=== PATIENT | female | born 1930 | race Asian ===

== ENCOUNTER 2016-08-25 09:33 | Inpatient (IN) | END 2016-08-26 17:05 | disposition home or self-care (01) | DRG 641 | DX: E87.1 Hypo-osmolality and hyponatremia (principal); E11.9 Type 2 diabetes mellitus without complications; D64.9 Anemia, unspecified; I10 Essential (primary) hypertension; E78.5 Hyperlipidemia, unspecified; M81.0 Age-related osteoporosis without current pathological fracture; R10.9 Unspecified abdominal pain ==

== ENCOUNTER 2019-01-09 09:08 | Inpatient (IN) | payer MEDICARE, BC ==
[~2019-01-09] VITALS: Ht 149.9 cm; Wt 52.3 kg
[~2019-01-09 09:08] MED LIST: AMLO-218 PO; ASPI-817 PO; CALC-207 PO; CALC500T12 PO; CARV3.1260 PO; CARV6.2579 PO; CHOL200056 PO; CHOL200073 PO; DEME300T8 PO; FAMO20TA18 PO; FER325 PO; FERR-55 PO; GABA100C14 PO; GLIM1TAB2 PO; HYDR-3672 PO; IBAN150T16 PO; ISOS30TA67 PO; LOPE-123 PO; LOSA50TA14 PO; LUBI8CAP4 PO; MECL-77 PO; METF500T24 PO; ONDA4TAB13 PO; SIMV10TA PO; SODI1TAB2 PO; TOLV15TA PO
[2019-01-09 09:12] VITALS: Ht 149.9 cm; Wt 52.3 kg
[2019-01-09] MEDS ORDERED: SOD CHLORIDE 0.9% 100 ML ONE (14:30)
[2019-01-09] MEDS ORDERED: ALBUTEROL/IPRATROPIUM (NEB) 3 ML AMP HHN STA (14:39)
--- NOTE | 2019-01-09 15:27 | HP ---
Date/Time of Note Date/Time of Note DATE: 01/09/19 TIME: 15:27 Assessment/Plan VTE Prophylaxis SCD applied (from Nsg): Yes Pharmacological prophylaxis: other Lines/Catheters IV Catheter Type (from Nrsg): Saline Lock Assessment/Plan Hospital Course Assessment and plan: 88-year-old female past medical history of diabetes, high cholesterol, hypertension, osteoporosis, anemia, recent hyponatremia, who comes in with shortness of breath and chest pain. #Shortness of breath: Again symptoms have been worsening over the last 1 to 2 days. Patient oxygen levels are stable. Symptoms somewhat relieved by DuoNeb's given today. Patient denies any prior history of asthma or COPD -Follow-up TSH, A1c, lipid panels, do DuoNebs every 4 hours around the clock for now -Given the CTA findings will obtain pulmonary consult for further work-up -We will also get respiratory therapy, speech, PT and OT eval's # cp: Could be musculoskeletal source, also need to rule out acute coronary syndrome -Put patient on high-dose aspirin, oxygen, nitroglycerin, morphine as needed -Trend the troponins every 6 hours x3 total, get 2D echocardiogram, will obtain cardiology consult as well. # DM: Follow-up A1c, placed on sliding scale insulin #Hypertension: Blood pressure stable, continue current medications #Anemia: Hemoglobin stable, monitor for now #History of osteoporosis: No present issues, will obtain PT, OT consult as mentioned above Result Diagram: 01/09/19 1120 01/09/19 1120 Results 24hrs Laboratory Tests Test 01/09/19 11:20 01/09/19 11:22 White Blood Count 8.7 Red Blood Count 4.61 Hemoglobin 13.0 Hematocrit 39.2 Mean Corpuscular Volume 85.0 Mean Corpuscular Hemoglobin 28.2 L Mean Corpuscular Hemoglobin Concent 33.2 Red Cell Distribution Width 13.8 Platelet Count 232 # Mean Platelet Volume 10.7 H Immature Granulocytes % 0.300 Neutrophils % 71.8 Lymphocytes % 17.5 Monocytes % 8.2 Eosinophils % 1.4 Basophils % 0.8 Nucleated Red Blood Cells % 0.0 Immature Granulocytes # 0.030 Neutrophils # 6.2 Lymphocytes # 1.5 Monocytes # 0.7 Eosinophils # 0.1 Basophils # 0.1 Nucleated Red Blood Cells # 0.0 Prothrombin Time 12.2 Prothrombin Time Ratio 1.0 INR International Normalized Ratio 0.89 Activated Partial Thromboplast Time 27.8 Sodium Level 136 Potassium Level 4.9 Chloride Level 99 Carbon Dioxide Level 26 Anion Gap 11 Blood Urea Nitrogen 24 H Creatinine 1.02 H Est Glomerular Filtrat Rate mL/min Glucose Level 161 Calcium Level 9.8 Total Bilirubin 0.3 Direct Bilirubin 0.00 Indirect Bilirubin 0.3 Aspartate Amino Transf (AST/SGOT) 39 Alanine Aminotransferase (ALT/SGPT) 28 Alkaline Phosphatase 114 Troponin I < 0.012 B-Type Natriuretic Peptide 448 Total Protein 7.4 Albumin 4.0 Globulin 3.40 H Albumin/Globulin Ratio 1.17 POC Venous Lactate 2.0 HPI/ROS Admit Date/Time Admit Date/Time Hx of Present Illness 88-year-old female past medical history of diabetes, high cholesterol, hypertension, osteoporosis, anemia, recent hyponatremia, who comes in with shortness of breath and chest pain. Patient states that symptoms have been going off and on for the last few days but gotten worse in the last 1 to 2 days. She denies any upper or lower GI bleeding, she has some mild nausea symptoms but no vomiting. She is also had decreased ambulation status due to weakness. Patient recently went to a new primary care doctor a few days ago and was told she had low sodium and was given a prescription for tolvaptan, which she was not able to fill because of the cost of the medicine being too high and the insurance not covering it. She also at that time was prescribed meclizine for some dizziness symptoms which mildly relieved those symptoms. 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 Patient denies any history of any prior stroke or heart attack. When she came in today she was given a breathing treatment which helped relieve her shortness of breath symptoms, but she was not found to be hypoxic. CTA chest was performed which showed: IMPRESSION: 1. Slightly limited evaluation of the pulmonary arteries due to respiratory motion artifact. No large or central pulmonary emboli. 2. No aortic aneurysm or dissection. 3. Cardiomegaly and coronary calcification. 4. Moderate central lobular emphysema. No confluent pneumonia, pleural fluid or pneumothorax. 5. Moderate left shoulder joint fluid and synovial thickening. 6. Focal step-off in the manubrium which is likely artifactual due to motion rather than true fracture PMH/Family/Social Past Medical History Medications Current Medications Ondansetron HCl (Zofran Inj) 4 mg ER BRIDGE PRN IV NAUSEA/VOMITING; Start 01/09/19 at 15:30; Stop 01/10/19 at 15:29 Acetaminophen (Tylenol Tab) 650 mg ER BRIDGE PRN PO .MILD PAIN 1-3 OR TEMP; Start 01/09/19 at 15:30; Stop 01/10/19 at 15:29 Coded Allergies: No Known Allergy (Verified , 01/09/19) Past Surgical History Past Surgical Hx: no surgical history Family History Significant Family History: no pertinent family hx Social History Alcohol Use: none Smoking Status: Never smoker Drug Use: none Exam/Review of Systems Vital Signs Vitals Vital Signs Date Temp Pulse Resp B/P (MAP) Pulse Ox O2 O2 Flow FiO2 Time Delivery Rate 01/09/19 97.8 71 18 173/78 100 Nasal 2.0 15:17 (109) Cannula Exam Exam Constitutional: lying in bed, getting DuoNeb treatment, alert Head: normocephalic, atraumatic Eyes: EOMI, PERRL Respiratory: Slightly distant breath sounds bilaterally Cardiovascular: S1, S2 heard Gastrointestinal: soft, non-tender Extremities: no bilateral lower extremity edema Neuro: No focal deficits BENTLEY LUONG Jan 09, 2019 15:27
[2019-01-09] MEDS ORDERED: ACETAMINOPHEN 325 MG TAB PO PRN ×2 (15:30→16:30)
[2019-01-09] MEDS ORDERED: ONDANSETRON 4 MG INJ IV PRN ×2 (15:30→16:30)
[2019-01-09] MEDS ORDERED: LORAZEPAM 2 MG INJ IV PRN (16:30)
[2019-01-09] MEDS ORDERED: hydrALAzine 20 MG INJ IV PRN ×2 (16:30→17:30)
[2019-01-09] MEDS ORDERED: NACL 0.9% 3 ML SYG IV SCH (16:30)
[2019-01-09] MEDS ORDERED: MAGNESIUM HYDROXIDE 30ML CUP PO PRN (16:30)
[2019-01-09] MEDS ORDERED: NITROGLYCERIN (SL) 0.4 MG TAB SL PRN (16:30)
[2019-01-09] MEDS ORDERED: morphine 2 MG INJ IV PRN (16:30)
[2019-01-09] MEDS ORDERED: DOCUSATE SODIUM 100 MG CAP PO PRN (16:30)
[2019-01-09] MEDS ORDERED: GLUCOSE GEL 15 GRAM TUBE PO PRN ×2 (17:00)
[2019-01-09] MEDS ORDERED: DEXTROSE 50% 50 ML SYRINGE IV PRN ×2 (17:00)
[2019-01-09] MEDS: INSULIN ASPART [NOVOLOG] 3 ML PEN SC SCH ×2 (17:00→21:00)
[2019-01-09] MEDS ORDERED: GLUCAGON 1 MG INJ IM PRN (17:00)
[2019-01-09] MEDS ORDERED: GLUCOSE GEL 15 GRAM TUBE BUCCAL PRN (17:00)
[2019-01-09] MEDS ORDERED: FUROSEMIDE 20 MG INJ IV ONE (17:30)
[2019-01-09] MEDS: ALBUTEROL/IPRATROPIUM (NEB) 3 ML AMP HHN SCH ×2 (17:44→22:06)
[2019-01-09] MEDS ORDERED: LEVOFLOXACIN 500MG/D5W (PMX) 100 ML IVPB SCH (19:30)
[2019-01-09] MEDS ORDERED: NON-FORMULARY/PATIENT OWN MED (Simvastatin* (Zocor*) 10 MG) PO SCH (21:00)
[2019-01-09] MEDS: ATORVASTATIN 10 MG TAB PO SCH (21:51)
[2019-01-09] MEDS: GABAPENTIN 100 MG CAP PO SCH (21:52)
[2019-01-09 21:54] VITALS: BP 165/72; PULSE 70; RESP 18
[2019-01-09 23:46] VITALS: BP 86/72; PULSE 77
[2019-01-10] MEDS ORDERED: SOD CHLORIDE 0.9% 500 ML IV ONE
[2019-01-10 00:30] VITALS: BP 104/46; PULSE 65; RESP 18
[2019-01-10] MEDS: INSULIN ASPART [NOVOLOG] 3 ML PEN SC SCH ×6 (01:00→20:44)
[2019-01-10] MEDS: ALBUTEROL/IPRATROPIUM (NEB) 3 ML AMP HHN SCH ×3 (01:49→09:48)
[2019-01-10] MEDS: ACCU-CHEK XX SCH (02:00)
[2019-01-10 03:56] VITALS: BP 95/43; PULSE 66; RESP 18
--- NOTE | 2019-01-10 03:59 | CONS ---
DATE OF ADMISSION: 01/09/2019 DATE OF CONSULTATION: 01/09/2019 REASON FOR CONSULTATION: Shortness of breath, congestive heart failure, rule out infections as well as chest pain, assess for acute coronary syndrome. REQUESTING PHYSICIAN: Dr. Luong from the hospitalist service. HISTORY OF PRESENT ILLNESS: Ms. Miguel is a very pleasant 88-year-old female well known to myself as a primary office patient who carries a history of hypertension, dyslipidemia, diabetes mellitus, neuropathy and presents with complaints of shortness of breath ongoing for 1 to 2 days and chest pain, left- sided at rest, poorly described. Upon arrival, temperature 98.7, blood pressure 138/83, pulse 69, respiratory rate 24, satting 98%. The patient's labs revealed a white blood count 8.7, hemoglobin 13.0, platelet count of 232. Sodium 136, potassium 4.9, creatinine 1.0, BUN of 24. Troponin negative. BNP of 448. INR 0.89. The patient underwent a chest CTA revealing a slightly limited evaluation of the pulmonary arteries due to respiratory motion artifact. No large central pulmonary emboli, no aortic aneurysm or dissection. Moderate central lobular emphysema, moderate left shoulder joint fluid and synovial thickening. Patient's additionally underwent a chest x-ray revealing calcification of the aorta, stable nodule of the right lower lung, diffuse mild interstitial prominence both lungs, could reflect edema. The patient's EKG revealed sinus rhythm, rate of 65, normal axis, normal intervals, anterior T-wave inversion with occasional PVCs and aberrantly conducted PACs. Thus far in the emergency department, the patient has been treated with albuterol, IV fluid hydration and now awaits admit to the floor. PAST MEDICAL HISTORY: As above in HPI. MEDICATIONS CURRENTLY IN HOSPITAL: 1. Levofloxacin. 2. Pepcid. 3. Ferrous sulfate. 4. Imdur 30 mg daily. 5. Carvedilol 3.125 p.o. b.i.d. 6. Neurontin 100 mg at bedtime. 7. Hydralazine 50 mg p.o. b.i.d. 8. Insulin sliding scale. 9. Zofran p.r.n. 10. Tylenol p.r.n. 11. [place]vang p.r.n. 12. Morphine p.r.n. 13. Ativan p.r.n. ALLERGIES: NO KNOWN DRUG ALLERGIES. SOCIAL HISTORY: No current tobacco, ETOH or illicit drug use. FAMILY HISTORY: No history of sudden cardiac or early CAD. REVIEW OF SYSTEMS: As above in HPI. CONSTITUTIONAL: No fevers, chills. PULMONARY: Positive shortness breath. CARDIOVASCULAR: Intermittent chest pain. GASTROINTESTINAL: No vomiting. GENITOURINARY: No hematuria. MUSCULOSKELETAL: Degenerative joint disease. PSYCHIATRIC: The patient has depression. NEUROLOGIC: No documented history of CVA. ENDOCRINE: Diabetes mellitus. PHYSICAL EXAMINATION: VITAL SIGNS: Temperature of 97.8, blood pressure 173/78, pulse 70, respiratory rate 18, satting 100% on 2 liters. GENERAL: The patient is alert, awake, complaining of shortness of breath. NECK: JVP approximately 9 cm of water. CHEST: Fair air movement throughout with mild decreased breath sounds at bases bilaterally. HEART: Regular rate and rhythm. Normal S1, S2, I/ systolic murmur, nondisplaced PMI. ABDOMEN: Positive bowel sounds, soft. EXTREMITIES: No significant pitting edema, 1+ pulses bilateral posterior tibial. LABORATORY DATA: As above in HPI. No further labs for my review at this time. IMAGING STUDIES: As above in HPI. No further imaging studies for my review at this time. ECG: As above in HPI. No further electrocardiograms for my review at this time. IMPRESSION: 1. Chest pain, assess for acute coronary syndrome with some possible reproducibility on left sided palpation of the chest, although there is additional component. 2. Shortness of breath, congestive heart failure. 3. Hypertension, currently uncontrolled, but has not received baseline medications. 4. Dyslipidemia. 5. Diabetes mellitus. 6. Neuropathy. 7. Increased BNP. RECOMMENDATIONS: 1. At this time, would admit patient to telemetry monitoring to follow rhythm and rate control closely. 2. Complete the patient's rule out for myocardial infarction to ensure the patient's constellation of not result in acute coronary syndrome, acute myocardial infarction. 3. Check a 2D echo for reassessment of patient's ejection fraction, wall motion, rule out any major abnormalities. 4. Follow the patient's blood pressure after receiving baseline carvedilol, hydralazine and Imdur and will give additional IV push p.r.n. antihypertensives as necessary. 5. Follow the patient's blood sugars closely with adjustment of insulin therapy. 6. Continue the patient's antibiotics and follow up all culture data including a sputum culture that should be checked. 7. We will consider possible stress test in this patient if she does rule out for myocardial infarction to be scheduled first thing in the morning. 8. We will consider gentle Lasix diuresis, but will need to follow the patient's creatinine closely. Thank you for allowing me to take part in the care of this patient. I will continue to follow very closely with you with further recommendations will be made as the patient progresses through inpatient hospital clinical course. Dictated By: LAZARO CREWS/PATRICIA Conf#: [id number] DID#: [id number] CC: BENTLEY LUONG;*Fredy* MTDD
[2019-01-10 07:35] VITALS: BP 119/56; PULSE 64; RESP 16
[2019-01-10] MEDS ORDERED: LEVOFLOXACIN 750MG/D5W (PMX) 150 ML IVPB SCH (09:00)
[2019-01-10] MEDS ORDERED: NON-FORMULARY/PATIENT OWN MED (Cholecalciferol (Vitamin D3) (Vitamin D-3) 2,000 UNIT) PO SCH (09:00)
[2019-01-10] MEDS: FAMOTIDINE 20 MG TAB PO SCH (09:05)
[2019-01-10] MEDS: FUROSEMIDE 20 MG INJ IV SCH (09:06)
[2019-01-10] MEDS: ISOSORBIDE MONONITRATE(SR)30 MG TAB PO SCH (09:06)
[2019-01-10] MEDS: CHOLECALCIFEROL 2,000 UNIT CAP PO SCH (09:06)
[2019-01-10] MEDS: FERROUS SULFATE (EC) 325 MG TAB PO SCH (09:09)
[2019-01-10] MEDS ORDERED: ALBUTEROL/IPRATROPIUM (NEB) 3 ML AMP HHN PRN (11:00)
[2019-01-10 11:05] VITALS: BP 111/59; RESP 16
--- NOTE | 2019-01-10 11:07 | PN ---
Date/Time of Note Date/Time of Note DATE: 01/10/19 TIME: 11:02 Assessment/Plan VTE Prophylaxis Risk score (from Ns)>0 risk: 4 SCD applied (from Ns): Yes Pharmacological prophylaxis: other Lines/Catheters IV Catheter Type (from Nrs): Saline Lock Assessment/Plan Hospital Course S: Patient states she has less shortness of breath now. Seen by cardiology team earlier. Waiting for cardiac stress test later today. O: VS- see below PE: Constitutional: lying in bed, more alert Head: normocephalic, atraumatic Eyes: EOMI, PERRL Respiratory: Slightly distant breath sounds bilaterally Cardiovascular: S1, S2 heard Gastrointestinal: soft, non-tender Extremities: no bilateral lower extremity edema Neuro: No focal deficits Assessment and plan: 88-year-old female past medical history of diabetes, high cholesterol, hypertension, osteoporosis, anemia, recent hyponatremia, who comes in with shortness of breath and chest pain. #Shortness of breath: Improved today. Before admission again symptoms had been worsening over the last 1 to 2 days. Patient oxygen levels are stable. Symptoms somewhat relieved by DuoNeb's given. Patient denies any prior history of asthma or COPD -Change to as needed DuoNebs every 4 hours -Follow-up further recommendations from pulmonary consult for further work-up Continue speech, PT and OT eval's # cp: Could be musculoskeletal source, patient has ruled out for acute coronary syndrome now. -For now continue aspirin, oxygen, nitroglycerin, morphine as needed -Planning for cardiac stress test today, follow-up results of this and further cardiac recommendations # DM: A1c = 6.8 -Monitor, continue sliding scale insulin #Hypertension: Blood pressure stable -Monitor, continue current medications #Anemia: Hemoglobin stable, monitor for now #History of osteoporosis: No present issues, follow-up recommendations from PT, OT consult as mentioned above Result Diagram: 01/10/19 0603 01/10/19 0603 Results 24hrs Laboratory Tests Test 01/09/19 11:20 01/09/19 11:22 01/09/19 17:18 01/09/19 17:46 White Blood Count 8.7 Red Blood Count 4.61 Hemoglobin 13.0 Hematocrit 39.2 Mean Corpuscular 85.0 Volume Mean Corpuscular 28.2 L Hemoglobin Mean Corpuscular 33.2 Hemoglobin Concent Red Cell 13.8 Distribution Width Platelet Count 232 # Mean Platelet Volume 10.7 H Immature 0.300 Granulocytes % Neutrophils % 71.8 Lymphocytes % 17.5 Monocytes % 8.2 Eosinophils % 1.4 Basophils % 0.8 Nucleated Red Blood 0.0 Cells % Immature 0.030 Granulocytes # Neutrophils # 6.2 Lymphocytes # 1.5 Monocytes # 0.7 Eosinophils # 0.1 Basophils # 0.1 Nucleated Red Blood 0.0 Cells # Prothrombin Time 12.2 Prothrombin Time 1.0 Ratio INR International 0.89 Normalized Ratio Activated 27.8 Partial Thromboplast Time Sodium Level 136 Potassium Level 4.9 Chloride Level 99 Carbon Dioxide Level 26 Anion Gap 11 Blood Urea Nitrogen 24 H Creatinine 1.02 H Est Glomerular Filtrat Rate mL/min Glucose Level 161 Calcium Level 9.8 Total Bilirubin 0.3 Direct Bilirubin 0.00 Indirect Bilirubin 0.3 Aspartate Amino 39 Transf (AST/SGOT) Alanine 28 Aminotransferase (AL T/SGPT) Alkaline Phosphatase 114 Troponin I < 0.012 < 0.012 B-Type Natriuretic 448 Peptide Total Protein 7.4 Albumin 4.0 Globulin 3.40 H Albumin/Globulin 1.17 Ratio POC Venous Lactate 2.0 Bedside Glucose 106 Lactic Acid Level 1.4 Creatine Kinase 249 H Creatine Kinase 1.5 Index Creatinine Kinase MB 3.68 H (Mass) Test 01/09/19 22:00 01/09/19 22:06 01/10/19 01:29 01/10/19 04:40 Bedside Glucose 113 112 103 Creatine Kinase 256 H Creatine Kinase 1.6 Index Creatinine Kinase MB 4.22 H (Mass) Troponin I 0.015 Test 01/10/19 06:03 01/10/19 06:28 01/10/19 08:38 White Blood Count 10.0 Red Blood Count 4.58 Hemoglobin 12.8 Hematocrit 38.9 Mean Corpuscular 84.9 Volume Mean Corpuscular 27.9 L Hemoglobin Mean Corpuscular 32.9 Hemoglobin Concent Red Cell 14.0 Distribution Width Platelet Count 226 Mean Platelet Volume 11.1 H Immature 0.400 Granulocytes % Neutrophils % 62.4 Lymphocytes % 26.1 Monocytes % 8.4 Eosinophils % 2.0 Basophils % 0.7 Nucleated Red Blood 0.0 Cells % Immature 0.040 H Granulocytes # Neutrophils # 6.2 Lymphocytes # 2.6 Monocytes # 0.8 Eosinophils # 0.2 Basophils # 0.1 Nucleated Red Blood 0.0 Cells # Sodium Level 136 Potassium Level 4.4 Chloride Level 101 Carbon Dioxide Level 24 Anion Gap 11 Blood Urea Nitrogen 32 H Creatinine 1.31 H Est Glomerular Filtrat Rate mL/min Glucose Level 108 # Hemoglobin A1c 6.8 H Calcium Level 9.0 Phosphorus Level 5.2 H Magnesium Level 1.8 Triglycerides Level 59 Cholesterol Level 154 LDL Cholesterol, 88 Calculated HDL Cholesterol 54 Cholesterol/HDL 2.8 Ratio Thyroid Stimulating 4.080 Hormone (TSH) Bedside Glucose 110 Exam/Review of Systems Exam Vitals Vital Signs Date Temp Pulse Resp B/P (MAP) Pulse Ox O2 O2 Flow FiO2 Time Delivery Rate 01/10/19 98 4.0 09:30 01/10/19 78 18 Aerosol 09:30 Aerosol Mask 01/10/19 97.8 119/56 07:35 (77) Intake and Output 01/09/19 01/09/19 01/10/19 1515:00 23:00 07:00 IntakeIntake Total 100 ml BalanceBalance 100 ml Results Results 24hrs Laboratory Tests Test 01/09/19 11:20 01/09/19 11:22 01/09/19 17:18 01/09/19 17:46 White Blood Count 8.7 Red Blood Count 4.61 Hemoglobin 13.0 Hematocrit 39.2 Mean Corpuscular 85.0 Volume Mean Corpuscular 28.2 L Hemoglobin Mean Corpuscular 33.2 Hemoglobin Concent Red Cell 13.8 Distribution Width Platelet Count 232 # Mean Platelet Volume 10.7 H Immature 0.300 Granulocytes % Neutrophils % 71.8 Lymphocytes % 17.5 Monocytes % 8.2 Eosinophils % 1.4 Basophils % 0.8 Nucleated Red Blood 0.0 Cells % Immature 0.030 Granulocytes # Neutrophils # 6.2 Lymphocytes # 1.5 Monocytes # 0.7 Eosinophils # 0.1 Basophils # 0.1 Nucleated Red Blood 0.0 Cells # Prothrombin Time 12.2 Prothrombin Time 1.0 Ratio INR International 0.89 Normalized Ratio Activated 27.8 Partial Thromboplast Time Sodium Level 136 Potassium Level 4.9 Chloride Level 99 Carbon Dioxide Level 26 Anion Gap 11 Blood Urea Nitrogen 24 H Creatinine 1.02 H Est Glomerular Filtrat Rate mL/min Glucose Level 161 Calcium Level 9.8 Total Bilirubin 0.3 Direct Bilirubin 0.00 Indirect Bilirubin 0.3 Aspartate Amino 39 Transf (AST/SGOT) Alanine 28 Aminotransferase (AL T/SGPT) Alkaline Phosphatase 114 Troponin I < 0.012 < 0.012 B-Type Natriuretic 448 Peptide Total Protein 7.4 Albumin 4.0 Globulin 3.40 H Albumin/Globulin 1.17 Ratio POC Venous Lactate 2.0 Bedside Glucose 106 Lactic Acid Level 1.4 Creatine Kinase 249 H Creatine Kinase 1.5 Index Creatinine Kinase MB 3.68 H (Mass) Test 01/09/19 22:00 01/09/19 22:06 01/10/19 01:29 01/10/19 04:40 Bedside Glucose 113 112 103 Creatine Kinase 256 H Creatine Kinase 1.6 Index Creatinine Kinase MB 4.22 H (Mass) Troponin I 0.015 Test 01/10/19 06:03 01/10/19 06:28 01/10/19 08:38 White Blood Count 10.0 Red Blood Count 4.58 Hemoglobin 12.8 Hematocrit 38.9 Mean Corpuscular 84.9 Volume Mean Corpuscular 27.9 L Hemoglobin Mean Corpuscular 32.9 Hemoglobin Concent Red Cell 14.0 Distribution Width Platelet Count 226 Mean Platelet Volume 11.1 H Immature 0.400 Granulocytes % Neutrophils % 62.4 Lymphocytes % 26.1 Monocytes % 8.4 Eosinophils % 2.0 Basophils % 0.7 Nucleated Red Blood 0.0 Cells % Immature 0.040 H Granulocytes # Neutrophils # 6.2 Lymphocytes # 2.6 Monocytes # 0.8 Eosinophils # 0.2 Basophils # 0.1 Nucleated Red Blood 0.0 Cells # Sodium Level 136 Potassium Level 4.4 Chloride Level 101 Carbon Dioxide Level 24 Anion Gap 11 Blood Urea Nitrogen 32 H Creatinine 1.31 H Est Glomerular Filtrat Rate mL/min Glucose Level 108 # Hemoglobin A1c 6.8 H Calcium Level 9.0 Phosphorus Level 5.2 H Magnesium Level 1.8 Triglycerides Level 59 Cholesterol Level 154 LDL Cholesterol, 88 Calculated HDL Cholesterol 54 Cholesterol/HDL 2.8 Ratio Thyroid Stimulating 4.080 Hormone (TSH) Bedside Glucose 110 Medications Medication Current Medications IV Flush (NS 3 ml) 3 ml PER PROTOCOL IV ; Start 01/09/19 at 16:30 Ondansetron HCl (Zofran Inj) 4 mg Q6H PRN IV NAUSEA/VOMITING; Start 01/09/19 at 16:30 Acetaminophen (Tylenol Tab) 650 mg Q6H PRN PO .PAIN 1-3 OR TEMP Last administered on 01/10/19at 00:46; Admin Dose 650 MG; Start 01/09/19 at 16:30 Acetaminophen/ Hydrocodone Bitart (Ogema (5/325)) 1 tab Q6H PRN PO .MOD PAIN 4- 6; Start 01/09/19 at 16:30 Morphine Sulfate (morphine) 2 mg Q4H PRN IV .SEVERE PAIN 7-10; Start 01/09/19 at 16:30 Docusate Sodium (Colace) 100 mg Q12H PRN PO .CONSTIPATION; Start 01/09/19 at 16:30 Magnesium Hydroxide (Milk Of Mag) 30 ml DAILY PRN PO .CONSTIPATION; Start 01/09/19 at 16:30 Lorazepam (Ativan) 0.5 mg Q6H PRN IV ANXIETY Last administered on 01/09/19at 22:34; Admin Dose 0.5 MG; Start 01/09/19 at 16:30 Albuterol/ Ipratropium (Duoneb) 3 ml Q4H RESP THERAPY HHN Last administered on 01/10/19at 09:48; Admin Dose 3 ML; Start 01/09/19 at 17:00 Hydralazine HCl (Apresoline) 10 mg Q6H PRN IV ELEVATED BLOOD PRESSURE; Start 01/09/19 at 16:30 Nitroglycerin (Nitroglycerin (Sl Tab) 0.4 Mg) 1 tab Q5M PRN SL ANGINA; Start 01/09/19 at 16:30 Carvedilol (Coreg) 3.125 mg BID PO Last administered on 01/09/19at 21:52; Admin Dose 3.125 MG; Start 01/09/19 at 21:00 Famotidine (Pepcid) 20 mg DAILY PO Last administered on 01/10/19at 09:05; Admin Dose 20 MG; Start 01/10/19 at 09:00 Ferrous Sulfate (Ferrous Sulfate (Ec)) 325 mg DAILY PO Last administered on 01/10/19 09:09; Admin Dose 325 MG; Start 01/10/19 at 09:00 Gabapentin (Neurontin) 100 mg QHS PO Last administered on 01/09/19at 21:52; Admin Dose 100 MG; Start 01/09/19 at 21:00 Hydralazine HCl (Apresoline) 50 mg BID PO Last administered on 01/09/19at 21:51; Admin Dose 50 MG; Start 01/09/19 at 21:00 Isosorbide Mononitrate (Imdur) 30 mg DAILY PO Last administered on 01/10/19at 09:06; Admin Dose 30 MG; Start 01/10/19 at 09:00 Diagnostic Test (Pha) (Accu-Chek) 1 ea 02 XX ; Start 01/10/19 at 02:00 Insulin Aspart (Novolog Insulin Pen) NOVOLOG *MILD* ALGORI... Q4 SC ; Start 01/09/19 at 17:00 Miscellaneous Information 1 ea NOTE XX ; Start 01/09/19 at 17:00 Glucose (Glutose) 15 gm Q15M PRN PO DECREASED GLUCOSE; Start 01/09/19 at 17:00 Glucose (Glutose) 22.5 gm Q15M PRN PO DECREASED GLUCOSE; Start 01/09/19 at 17:00 Dextrose (D50w Syringe) 25 ml Q15M PRN IV DECREASED GLUCOSE; Start 01/09/19 at 17:00 Dextrose (D50w Syringe) 50 ml Q15M PRN IV DECREASED GLUCOSE; Start 01/09/19 at 17:00 Glucagon (Glucagen) 1 mg Q15M PRN IM DECREASED GLUCOSE; Start 01/09/19 at 17:00 Glucose (Glutose) 15 gm Q15M PRN BUCCAL DECREASED GLUCOSE; Start 01/09/19 at 17:00 Furosemide (Lasix) 20 mg DAILY IV Last administered on 01/10/19at 09:06; Admin Dose 20 MG; Start 01/10/19 at 09:00 Hydralazine HCl (Apresoline) 10 mg Q4H PRN IV sbp>170; Start 01/09/19 at 17:30 Atorvastatin Calcium (Lipitor) 10 mg DAILY@21 PO Last administered on 01/09/19at 21:51; Admin Dose 10 MG; Start 01/09/19 at 21:00 Cholecalciferol (Vitamin D) 2,000 unit DAILY PO Last administered on 01/10/19at 09:06; Admin Dose 2,000 UNIT; Start 01/10/19 at 09:00 Levofloxacin/ Dextrose 50 ml @ 50 mls/hr Q24H IVPB ; Start 01/10/19 at 20:00 BENTLEY LUONG Jan 10, 2019 11:07
[2019-01-10] MEDS ORDERED: REGADENOSON 0.4 MG/5 ML SYG ONE (11:51)
--- NOTE | 2019-01-10 12:42 | CONS ---
Assessment/Plan Assessment/Plan Hospital Course (Demo Recall) IMPRESSION: 1. Chest pain, assess for acute coronary syndrome-neg trop x 3 2. Shortness of breath, congestive heart failure.-improved somewhat with diuresis 3. Hypertension,- now with borderline hypotension 4. Dyslipidemia. 5. Diabetes mellitus. 6. Neuropathy. 7. Increased BNP. Recc -Tele -serial ecg's -Contineu coreg/imdur and will decrease dose of hydralazine to allow patient to better tolerate -Continue lasix diuresis andn follow volume status clsoely -Lexiscan stress test today - Consultation Date/Type/Reason Admit Date/Time Jan 09, 2019 at 15:16 Initial Consult Date 01/09/19 Type of Consult Cardiology Reason for Consultation chest pain Date/Time of Note DATE: 01/10/19 TIME: 12:33 Exam/Review of Systems Vital Signs Vitals Vital Signs Date Temp Pulse Resp B/P (MAP) Pulse Ox O2 O2 Flow FiO2 Time Delivery Rate 01/10/19 98.2 16 111/59 99 Nasal 11:05 (76) Cannula 01/10/19 4.0 09:30 01/10/19 78 09:30 Intake and Output 01/09/19 01/09/19 01/10/19 1515:00 23:00 07:00 IntakeIntake Total 100 ml BalanceBalance 100 ml Exam Exam Review of Systems: CONSTITUTIONAL: No fevers, chills. PULMONARY: No sob CARDIOVASCULAR: No chest pain/palpitations GASTROINTESTINAL: No nausea/vomiting. GENITOURINARY: No hematuria/dysuria. MUSCULOSKELETAL: No myagias/arthalgias. PSYCHIATRIC: The patient denies depression. NEUROLOGIC: No weakness Constitutional: alert Psych: no complaints Head: normocephalic ENMT: mucosa pink and moist Neck: supple, jvd (9 cm water) Respiratory: diminished breath sounds Cardiovascular: regular rate and rhythm Gastrointestinal: soft, non-tender Musculoskeletal: muscle tone (normal) Extremities: edema (none) Neurological: other (No focal deficits) Labs Result Diagram: 01/10/19 0603 01/10/19 0603 Results 24hrs Laboratory Tests Test 01/09/19 17:18 01/09/19 17:46 01/09/19 22:00 01/09/19 22:06 Bedside Glucose 106 113 Lactic Acid Level 1.4 Creatine Kinase 249 H 256 H Creatine Kinase 1.5 1.6 Index Creatinine Kinase MB 3.68 H 4.22 H (Mass) Troponin I < 0.012 0.015 Test 01/10/19 01:29 01/10/19 04:40 01/10/19 06:03 01/10/19 06:28 Bedside Glucose 112 103 White Blood Count 10.0 Red Blood Count 4.58 Hemoglobin 12.8 Hematocrit 38.9 Mean Corpuscular 84.9 Volume Mean Corpuscular 27.9 L Hemoglobin Mean Corpuscular 32.9 Hemoglobin Concent Red Cell 14.0 Distribution Width Platelet Count 226 Mean Platelet Volume 11.1 H Immature 0.400 Granulocytes % Neutrophils % 62.4 Lymphocytes % 26.1 Monocytes % 8.4 Eosinophils % 2.0 Basophils % 0.7 Nucleated Red Blood 0.0 Cells % Immature 0.040 H Granulocytes # Neutrophils # 6.2 Lymphocytes # 2.6 Monocytes # 0.8 Eosinophils # 0.2 Basophils # 0.1 Nucleated Red Blood 0.0 Cells # Sodium Level 136 Potassium Level 4.4 Chloride Level 101 Carbon Dioxide Level 24 Anion Gap 11 Blood Urea Nitrogen 32 H Creatinine 1.31 H Est Glomerular Filtrat Rate mL/min Glucose Level 108 # Hemoglobin A1c 6.8 H Calcium Level 9.0 Phosphorus Level 5.2 H Magnesium Level 1.8 Triglycerides Level 59 Cholesterol Level 154 LDL Cholesterol, 88 Calculated HDL Cholesterol 54 Cholesterol/HDL 2.8 Ratio Thyroid Stimulating 4.080 Hormone (TSH) Test 01/10/19 08:38 Bedside Glucose 110 Medications Medications Current Medications IV Flush (NS 3 ml) 3 ml PER PROTOCOL IV ; Start 01/09/19 at 16:30 Ondansetron HCl (Zofran Inj) 4 mg Q6H PRN IV NAUSEA/VOMITING; Start 01/09/19 at 16:30 Acetaminophen (Tylenol Tab) 650 mg Q6H PRN PO .PAIN 1-3 OR TEMP Last administ ered on 01/10/19at 00:46; Admin Dose 650 MG; Start 01/09/19 at 16:30 Acetaminophen/ Hydrocodone Bitart ([place] (5/325)) 1 tab Q6H PRN PO .MOD PAIN 4- 6; Start 01/09/19 at 16:30 Morphine Sulfate (morphine) 2 mg Q4H PRN IV .SEVERE PAIN 7-10; Start 01/09/19 at 16:30 Docusate Sodium (Colace) 100 mg Q12H PRN PO .CONSTIPATION; Start 01/09/19 at 16:30 Magnesium Hydroxide (Milk Of Mag) 30 ml DAILY PRN PO .CONSTIPATION; Start 01/09/19 at 16:30 Lorazepam (Ativan) 0.5 mg Q6H PRN IV ANXIETY Last administered on 01/09/19at 22:34; Admin Dose 0.5 MG; Start 01/09/19 at 16:30 Hydralazine HCl (Apresoline) 10 mg Q6H PRN IV ELEVATED BLOOD PRESSURE; Start 01/09/19 at 16:30 Nitroglycerin (Nitroglycerin (Sl Tab) 0.4 Mg) 1 tab Q5M PRN SL ANGINA; Start 01/09/19 at 16:30 Carvedilol (Coreg) 3.125 mg BID PO Last administered on 01/09/19at 21:52; Admin Dose 3.125 MG; Start 01/09/19 at 21:00 Famotidine (Pepcid) 20 mg DAILY PO Last administered on 01/10/19at 09:05; Admin Dose 20 MG; Start 01/10/19 at 09:00 Ferrous Sulfate (Ferrous Sulfate (Ec)) 325 mg DAILY PO Last administered on 01/10/19at 09:09; Admin Dose 325 MG; Start 01/10/19 at 09:00 Gabapentin (Neurontin) 100 mg QHS PO Last administered on 01/09/19at 21:52; Admin Dose 100 MG; Start 01/09/19 at 21:00 Hydralazine HCl (Apresoline) 50 mg BID PO Last administered on 01/09/19at 21:51; Admin Dose 50 MG; Start 01/09/19 at 21:00 Isosorbide Mononitrate (Imdur) 30 mg DAILY PO Last administered on 01/10/19at 09:06; Admin Dose 30 MG; Start 01/10/19 at 09:00 Diagnostic Test (Pha) (Accu-Chek) 1 ea 02 XX ; Start 01/10/19 at 02:00 Insulin Aspart (Novolog Insulin Pen) NOVOLOG *MILD* ALGORI... Q4 SC ; Start 01/09/19 at 17:00 Miscellaneous Information 1 ea NOTE XX ; Start 01/09/19 at 17:00 Glucose (Glutose) 15 gm Q15M PRN PO DECREASED GLUCOSE; Start 01/09/19 at 17:00 Glucose (Glutose) 22.5 gm Q15M PRN PO DECREASED GLUCOSE; Start 01/09/19 at 17:00 Dextrose (D50w Syringe) 25 ml Q15M PRN IV DECREASED GLUCOSE; Start 01/09/19 at 17:00 Dextrose (D50w Syringe) 50 ml Q15M PRN IV DECREASED GLUCOSE; Start 01/09/19 at 17:00 Glucagon (Glucagen) 1 mg Q15M PRN IM DECREASED GLUCOSE; Start 01/09/19 at 17:00 Glucose (Glutose) 15 gm Q15M PRN BUCCAL DECREASED GLUCOSE; Start 01/09/19 at 17:00 Furosemide (Lasix) 20 mg DAILY IV Last administered on 01/10/19at 09:06; Admin D ose 20 MG; Start 01/10/19 at 09:00 Hydralazine HCl (Apresoline) 10 mg Q4H PRN IV sbp>170; Start 01/09/19 at 17:30 Atorvastatin Calcium (Lipitor) 10 mg DAILY@21 PO Last administered on 01/09/19at 21:51; Admin Dose 10 MG; Start 01/09/19 at 21:00 Cholecalciferol (Vitamin D) 2,000 unit DAILY PO Last administered on 01/10/19at 09:06; Admin Dose 2,000 UNIT; Start 01/10/19 at 09:00 Levofloxacin/ Dextrose 50 ml @ 50 mls/hr Q24H IVPB ; Start 01/10/19 at 20:00 Albuterol/ Ipratropium (Duoneb) 3 ml Q4H RESP THERAPY PRN HHN SHORTNESS OF BREATH; Start 01/10/19 at 11:00 LAZARO LEWIS Jan 10, 2019 12:42
--- NOTE | 2019-01-10 14:04 | CONS ---
DATE OF ADMISSION: 01/09/2019 DATE OF CONSULTATION: 01/10/2019 REASON FOR CONSULTATION: Shortness of breath. Thank you, Dr. Luong, for this consultation. HISTORY OF PRESENT ILLNESS: This is an 88-year-old lady with multiple medical problems including hyp ertension, hyperlipidemia, came in with several-day history of increasing shortness of breath, conges tion. No prior history of asthma, COPD per patient. No orthopnea, PND, no hemoptysis, no hematemesi s, recent history of possible postural hypotension also. PAST MEDICAL HISTORY: As above. MEDICATIONS: Per chart. ALLERGIES: NONE. SOCIAL HISTORY: She is a nonsmoker, no alcohol, no history of drug use. FAMILY HISTORY: Noncontributory. SYSTEMS REVIEW: A 12-point review of systems was negative other than that mentioned above. DIAGNOSTIC STUDIES: CT chest was performed demonstrated central lobar emphysema, moderate. No evide nce of pulmonary embolus, she is nonsmoker. PHYSICAL EXAMINATION: GENERAL: Well-nourished, well-developed lady, appears comfortable at rest, no acute distress. VITAL SIGNS: Currently afebrile, pulse is 80, blood pressure 111/60, O2 saturation 96%, FIO2 of 4 li ters. NECK: Supple. No JVD or lymphadenopathy. CARDIAC: S1, S2, no added sounds or murmurs. CHEST: Diminished air entry bilaterally. ABDOMEN: Soft, nontender. No guarding or rebound. EXTREMITIES: 1+ edema. NEUROLOGIC: Grossly intact. No focal deficits. LABORATORY DATA: White count 10, hemoglobin 12.8, platelets of 226. BUN 32, creatinine 1.31. INR 0 .89. Urinalysis unremarkable. Chest CT demonstrated moderate central lobar emphysema. IMPRESSION AND PLAN: No pleural effusion, no pneumonia. No pulmonary embolism. IMPRESSION AND PLAN: 1. Hypoxemia, possibly secondary to chronic obstructive pulmonary disease exacerbation. 2. Exclude coronary ischemia with congestive heart failure. 3. Likely outpatient pulmonary function testing and follow up with me. 4. Given patient's advanced age, she may benefit from half-way facility prior to being discha rged home. Dictated By: JOSEPH AHN/PATRICIA Conf#: [id number] DID#: [id number] CC: BENTLEY LUONG;*EndCC*
--- NOTE | 2019-01-10 14:12 | RADRPT ---
Echocardiogram Report Patient Name: ILYA LARSONADAPatient ID: [id number] : [id number] (88y 8m)Study Date: 01/10/2019 8:27:35 AM Gender: FAccession #: [id number] Tech: Leo Schmitz [facility] Location: [address] Ref.Physician: BENTLEY LUONG Height(Cm): BSA: Weight(Kg): Quality: AdequateOrder Physician: BENTLEY LUONG Account #: Procedures: Echocardiographic Report: Transthoracic echocardiogram with complete 2D, M-Mode, and doppler examination. Indications: Chest Pain. Measurements: 2D/M Mode Doppler Measurement Value Normal Range Measurement Value Normal Range LVIDd 2D 3.1 [ 3.8 - 5.2 ] cm AV Peak Oren 1.6 [ 100.0 - 170.0 ] cm/sec LVIDs 2D 2.1 [ 2.2 - 3.5 ] cm AV Peak PG 11.0 [ 2.0 - 9.0 ] mmHg LVPWd 2D 0.7 [ 0.6 - 0.9 ] cm LVOT Peak Oren 0.9 [ 70.0 - 110.0 ] cm/sec IVSd 2D 1.1 [ 0.6 - 0.9 ] cm LVOT Peak PG 3.0 [ 2.0 - 6.0 ] mmHg AoR Diam 2D 2.5 [ 2.3 - 3.1 ] cm MV E Peak Oren 0.6 [ 60.0 - 130.0 ] cm/sec EDV 2D 37.9 [ 46.0 - 106.0 ] ml MV A Peak Oren 0.9 [ 100.0 - 120.0 ] cm/sec ESV 2D 14.4 [ 14.0 - 42.0 ] ml MV E/A 0.7 [ 0.8 - 1.5 ] ratio EF 2D 62.0 [ 54.0 - 74.0 ] percent MV Decel Time 261 [ 104 - 258 ] msec LA Dimen 2D 3.1 [ 2.7 - 3.8 ] cm Lat E` Oren 0.1 [ 10.0 - 15.0 ] cm/sec Lateral E/E` 10.0 [ 1.0 - 2.0 ] ratio Med E` Oren 0.1 cm/sec MV E/A 0.7 [ 0.8 - 1.5 ] ratio TR Peak Oren 2.6 [ 100.0 - 280.0 ] cm/sec TR Peak PG 27.0 mmHg RVSP 30.0 [ 10.0 - 36.0 ] mmHg Findings: Left Ventricle: Normal left ventricular systolic function. Normal left ventricular cavity size. Sigmoid septum. Ejection fraction is visually estimated at 55-60 %. Tissue Doppler/Mitral Doppler indices are consistent with impaired relaxation (Stage I diastolic dysfunction). Right Ventricle: Normal right ventricular size. Normal right ventricular systolic function. Left Atrium: The left atrium is normal in size. Right Atrium: The right atrium is normal in size. Mitral Valve: Mild mitral leaflet calcification. Mild mitral annular calcification. Trace mitral regurgitation. Aortic Valve: No hemodynamically significant aortic stenosis by doppler. Aortic cusps appear mildly calcified. Mild aortic valve regurgitation. Tricuspid Valve: Normal appearance of the tricuspid valve. The estimated Peak RVSP is 30 mmHg. There is mild tricuspid regurgitation. Pericardium: Normal pericardium with no significant pericardial effusion. Aorta: Normal aortic root. IVC: Normal size and normal respiratory collapse consistent with normal right atrial pressure. Conclusions: Normal left ventricular systolic function. Normal left ventricular cavity size. Sigmoid septum. Ejection fraction is visually estimated at 55-60 %. Tissue Doppler/Mitral Doppler indices are consistent with impaired relaxation (Stage I diastolic dysfunction). Mild mitral leaflet calcification. Mild mitral annular calcification. Trace mitral regurgitation. No hemodynamically significant aortic stenosis by doppler. Aortic cusps appear mildly calcified. Mild aortic valve regurgitation. Normal appearance of the tricuspid valve. The estimated Peak RVSP is 30 mmHg. There is mild tricuspid regurgitation. Electronically Signed By: Adama Krueger 2019-01-10 14:12:15 PDT
--- NOTE | 2019-01-10 14:39 | CONS ---
DATE OF ADMISSION: 01/09/2019 DATE OF CONSULTATION: 01/10/2019 LEXISCAN CARDIAC STRESS TEST REASON FOR STRESS TESTING: Chest pain, assess for ischemia. BASELINE VITAL SIGNS AND ELECTROCARDIOGRAM: Pulse 72, blood pressure 133/60. Electrocardiogram reve aled sinus rhythm, rate of 72, normal axis, normal intervals, isolated PVCs. PROCEDURE: The patient underwent standard Lexiscan infusion protocol over 10 seconds followed by rad iotracer. The patient's test was stopped due to completion of protocol. Maximal achieved blood pres sure during test 112/50. Maximum achieved heart rate during the test, 88. ECG FINDINGS: The patient did not develop any new Lexiscan-induced ST or T-wave changes from baselin e abnormalities, occasional PVCs. SYMPTOMS: The patient had a slight shortness of breath during stress testing, no chest pain, which r esolved in recovery. IMPRESSION: 1. No Lexiscan-induced ST or T-wave changes from baseline abnormalities for diagnostic cardiac [place]. 2. No complaints of chest pain during stress testing. 3. Positive shortness of breath during stress test that resolved in recovery. 4. No documented premature ventricular contractions during stress test. 5. Report of nuclear images to follow in separate dictation. Dictated By: LAZARO CREWS/PATRICIA Conf#: [id number] DID#: [id number] CC: BENTLEY LUONG;*EndCC*
[2019-01-10 15:41] VITALS: BP 132/81; PULSE 69; RESP 16
[2019-01-10] MEDS: HYDROCODONE/APAP (5/325) TAB PO PRN (19:01)
[2019-01-10 20:00] VITALS: BP 141/63; PULSE 87; RESP 17
[2019-01-10] MEDS: LEVOFLOXACIN 250MG/D5W (PMX) 50 ML IVPB SCH (20:29)
[2019-01-10] MEDS: ATORVASTATIN 10 MG TAB PO SCH (20:30)
[2019-01-10] MEDS: GABAPENTIN 100 MG CAP PO SCH (20:30)
--- NOTE | 2019-01-10 20:55 | RADRPT ---
Vent Rate: 61 bpm RR Interval: 980 msec MA Interval: 166 msec QRS Duration: 74 msec QT Interval: 467 msec QTC Interval: 472 msec P-R-T [place]: -10 - 39 - 58 degrees Sinus rhythm...normal P axis, V-rate 50- 99 Low voltage, precordial leads...precordial leads <1.0mV Electronically Signed By: Adarsh Gonzales
[2019-01-11 00:10] VITALS: BP 86/46; PULSE 72; RESP 20
[2019-01-11] MEDS: HYDROCODONE/APAP (5/325) TAB PO PRN (01:41)
[2019-01-11] MEDS: ACCU-CHEK XX SCH (01:41)
[2019-01-11 04:45] VITALS: BP 114/55; PULSE 63; RESP 20
[2019-01-11 07:10] VITALS: BP 110/54; PULSE 62; RESP 16
[2019-01-11] MEDS: INSULIN ASPART [NOVOLOG] 3 ML PEN SC SCH ×4 (07:25→21:00)
[2019-01-11] MEDS: FERROUS SULFATE (EC) 325 MG TAB PO SCH (08:14)
[2019-01-11] MEDS: FAMOTIDINE 20 MG TAB PO SCH (08:14)
[2019-01-11] MEDS: ISOSORBIDE MONONITRATE(SR)30 MG TAB PO SCH (08:14)
[2019-01-11] MEDS: CHOLECALCIFEROL 2,000 UNIT CAP PO SCH (08:14)
[2019-01-11] MEDS: FUROSEMIDE 20 MG INJ IV SCH (08:14)
[2019-01-11 11:16] VITALS: BP 106/53; PULSE 65; RESP 16
--- NOTE | 2019-01-11 11:40 | CONS ---
Consultation Date/Type/Reason Admit Date/Time Jan 09, 2019 at 15:16 Initial Consult Date Type of Consult Pulmonary Patient's condition is stable. Still complains of mild chest congestion. Denies any wheezing, sputum production or coughing. General exam; elderly woman, awake alert, currently in no distress. HEENT exam; supple neck, no JVD. No lymphadenopathy. Midline trachea. No thyromegaly. No neck bruits. Patient has fair dentition. No neck masses. Chest exam; diminished breath sounds bilaterally. No added sounds. S1-S2 audible, no murmurs. Regular rhythm. Abdomen exam; soft, nontender. No organomegaly. Bowel sounds are audible. Extremity exam; no peripheral edema clubbing. 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 Assessment and recommendations; 1. Patient admitted with shortness of breath with what appears to be acute bronchitis without any history of COPD or asthma. 2. Negative Lexiscan stress test yesterday. 3. History of hypertension. 4. Based upon examination as well as imaging studies, CHF is unlikely. 5. Mild increase in serum creatinine. Likely diuretic induced. Continue current supportive care. Discontinue further Lasix. Monitor renal function. Add DuoNeb every 6 hours scheduled. Date/Time of Note DATE: 01/11/19 TIME: 11:38 Exam/Review of Systems Exam Vitals Vital Signs Date Temp Pulse Resp B/P (MAP) Pulse Ox O2 O2 Flow FiO2 Time Delivery Rate 01/11/19 97.8 65 16 106/53 97 Room Air 11:16 (70) 01/11/19 2.0 08:16 Intake and Output 01/10/19 01/10/19 01/11/19 1515:00 23:00 07:00 IntakeIntake Total 100 ml 410 ml OutputOutput Total 1040 ml 300 ml BalanceBalance -940 ml 110 ml Results Result Diagram: 01/11/19 0555 01/11/19 0555 Results 24hrs Laboratory Tests Test 01/10/19 13:31 01/10/19 17:14 01/10/19 20:42 01/11/19 05:55 Bedside Glucose 150 178 114 White Blood Count 9.1 Red Blood Count 4.49 Hemoglobin 12.7 Hematocrit 38.7 Mean Corpuscular Volume 86.2 Mean Corpuscular 28.3 L Hemoglobin Mean Corpuscular 32.8 Hemoglobin Concent Red Cell Distribution 13.8 Width Platelet Count 216 Mean Platelet Volume 10.4 Immature Granulocytes % 0.300 Neutrophils % 63.7 Lymphocytes % 21.2 Monocytes % 9.7 Eosinophils % 4.5 Basophils % 0.6 Nucleated Red Blood 0.0 Cells % Immature Granulocytes # 0.030 Neutrophils # 5.8 Lymphocytes # 1.9 Monocytes # 0.9 Eosinophils # 0.4 Basophils # 0.1 Nucleated Red Blood 0.0 Cells # Sodium Level 131 L Potassium Level 4.1 Chloride Level 97 Carbon Dioxide Level 26 Anion Gap 8 Blood Urea Nitrogen 46 #H Creatinine 1.56 H Est Glomerular Filtrat Rate mL/min Glucose Level 114 Calcium Level 8.8 Test 01/11/19 08:01 Bedside Glucose 108 Medications Medication Current Medications IV Flush (NS 3 ml) 3 ml PER PROTOCOL IV ; Start 01/09/19 at 16:30 Ondansetron HCl (Zofran Inj) 4 mg Q6H PRN IV NAUSEA/VOMITING; Start 01/09/19 at 16:30 Acetaminophen (Tylenol Tab) 650 mg Q6H PRN PO .PAIN 1-3 OR TEMP Last administered on 01/10/19at 00:46; Admin Dose 650 MG; Start 01/09/19 at 16:30 Acetaminophen/ Hydrocodone Bitart ([place] (5/325)) 1 tab Q6H PRN PO .MOD PAIN 4- 6 Last administered on 01/10/19at 19:01; Admin Dose 1 TAB; Start 01/09/19 at 16:30 Morphine Sulfate (morphine) 2 mg Q4H PRN IV .SEVERE PAIN 7-10; Start 01/09/19 at 16:30 Docusate Sodium (Colace) 100 mg Q12H PRN PO .CONSTIPATION; Start 01/09/19 at 16:30 Magnesium Hydroxide (Milk Of Mag) 30 ml DAILY PRN PO .CONSTIPATION; Start 01/09/19 at 16:30 Lorazepam (Ativan) 0.5 mg Q6H PRN IV ANXIETY Last administered on 01/09/19at 22:34; Admin Dose 0.5 MG; Start 01/09/19 at 16:30 Hydralazine HCl (Apresoline) 10 mg Q6H PRN IV ELEVATED BLOOD PRESSURE; Start 01/09/19 at 16:30 Nitroglycerin (Nitroglycerin (Sl Tab) 0.4 Mg) 1 tab Q5M PRN SL ANGINA; Start 01/09/19 at 16:30 Carvedilol (Coreg) 3.125 mg BID PO Last administered on 01/11/19at 08:14; Admin Dose 3.125 MG; Start 01/09/19 at 21:00 Famotidine (Pepcid) 20 mg DAILY PO Last administered on 01/11/19at 08:14; Admin Dose 20 MG; Start 01/10/19 at 09:00 Ferrous Sulfate (Ferrous Sulfate (Ec)) 325 mg DAILY PO Last administered on 01/11/19at 08:14; Admin Dose 325 MG; Start 01/10/19 at 09:00 Gabapentin (Neurontin) 100 mg QHS PO Last administered on 01/10/19at 20:30; Admin Dose 100 MG; Start 01/09/19 at 21:00 Isosorbide Mononitrate (Imdur) 30 mg DAILY PO Last administered on 01/11/19at 08:14; Admin Dose 30 MG; Start 01/10/19 at 09:00 Diagnostic Test (Pha) (Accu-Chek) 1 ea 02 XX ; Start 01/10/19 at 02:00 Miscellaneous Information 1 ea NOTE XX ; Start 01/09/19 at 17:00 Glucose (Glutose) 15 gm Q15M PRN PO DECREASED GLUCOSE; Start 01/09/19 at 17:00 Glucose (Glutose) 22.5 gm Q15M PRN PO DECREASED GLUCOSE; Start 01/09/19 at 17:00 Dextrose (D50w Syringe) 25 ml Q15M PRN IV DECREASED GLUCOSE; Start 01/09/19 at 17:00 Dextrose (D50w Syringe) 50 ml Q15M PRN IV DECREASED GLUCOSE; Start 01/09/19 at 17:00 Glucagon (Glucagen) 1 mg Q15M PRN IM DECREASED GLUCOSE; Start 01/09/19 at 17:00 Glucose (Glutose) 15 gm Q15M PRN BUCCAL DECREASED GLUCOSE; Start 01/09/19 at 17 :00 Furosemide (Lasix) 20 mg DAILY IV Last administered on 01/11/19at 08:14; Admin Dose 20 MG; Start 01/10/19 at 09:00 Hydralazine HCl (Apresoline) 10 mg Q4H PRN IV sbp>170; Start 01/09/19 at 17:30 Atorvastatin Calcium (Lipitor) 10 mg DAILY@21 PO Last administered on 01/10/19 20:30; Admin Dose 10 MG; Start 01/09/19 at 21:00 Cholecalciferol (Vitamin D) 2,000 unit DAILY PO Last administered on 01/11/19 08:14; Admin Dose 2,000 UNIT; Start 01/10/19 at 09:00 Levofloxacin/ Dextrose 50 ml @ 50 mls/hr Q24H IVPB Last administered on 01/10/19at 20:29; Admin Dose 50 MLS/HR; Start 01/10/19 at 20:00 Albuterol/ Ipratropium (Duoneb) 3 ml Q4H RESP THERAPY PRN HHN SHORTNESS OF BREATH; Start 01/10/19 at 11:00 Hydralazine HCl (Apresoline) 25 mg BID PO Last administered on 01/11/19 08:13; Admin Dose 25 MG; Start 01/10/19 at 21:00 Insulin Aspart (Novolog Insulin Pen) NOVOLOG *MILD* ALGORI... AC MEALS AND BEDT AZEEM SC Last administered on 01/10/19at 17:36; Admin Dose 1 UNIT; Start 01/10/19 at 17:25 JANIS YOON Jan 11, 2019 11:40
--- NOTE | 2019-01-11 12:08 | PN ---
Date/Time of Note Date/Time of Note DATE: 01/11/19 TIME: 12:05 Assessment/Plan VTE Prophylaxis Risk score (from Nsg)>0 risk: 4 SCD applied (from Nsg): Yes Pharmacological prophylaxis: other Lines/Catheters IV Catheter Type (from Nrsg): Saline Lock Assessment/Plan Hospital Course S: Had cardiac stress test yesterday. Still complaining of some weakness and shortness of breath symptoms today, although yesterday she appeared to be more stable. Seen by pulmonary team this morning. O: VS- see below PE: Constitutional: lying in bed, somewhat lethargic but answering questions appropriately Head: normocephalic, atraumatic Eyes: EOMI, PERRL Respiratory: Slightly distant breath sounds bilaterally Cardiovascular: S1, S2 heard Gastrointestinal: soft, non-tender Extremities: no bilateral lower extremity edema Neuro: No focal deficits Lexiscan myocardial perfusion study: IMPRESSION: 1. No evidence of perfusion defects. 2. No wall motion abnormalities. 3. The left ventricle ejection fraction at stress is greater than 70%. Assessment and plan: 88-year-old female past medical history of diabetes, high cholesterol, hypertension, osteoporosis, anemia, recent hyponatremia, who comes in with shortness of breath and chest pain. #Shortness of breath: Overall slowly improving, although today patient feels slightly more weak than normal. Again symptoms had been worsening 1 to 2 days prior to admission. Patient oxygen levels are stable. Symptoms somewhat relieved by DuoNeb's given. Patient denies any prior history of asthma or COPD. Symptoms likely secondary to acute bronchitis, also the could be an asthma or COPD component. -Per pulmonary records, switch to [id number] DuoNebs every 6 hours -Follow-up further recommendations from pulmonary consult for further work-up -likely will need further pulmonary function testing as outpatient. - Continue speech, PT and OT eval's # cp: Resolving now. Could be musculoskeletal source, patient has ruled out for acute coronary syndrome now. Cardiac stress test did not show any acute findings as well. -For now continue aspirin, oxygen, nitroglycerin, morphine as needed -Follow-up further cardiac recommendations # DM: A1c = 6.8. Sugars stable. -Monitor, continue sliding scale insulin #Hypertension: Blood pressure stable -Monitor, continue current medications #Anemia: Hemoglobin stable, monitor for now #History of osteoporosis: No present issues, follow-up recommendations from PT, OT consult as mentioned above Dispo: Likely home in 24 hours when cleared by consultant technology teams and patient's weakness and shortness of breath symptoms have improved. Will need outpatient follow-up with both cardiology and pulmonary team, specifically pulmonary function test likely as an outpatient. Result Diagram: 01/11/19 0555 01/11/19 0555 Results 24hrs Laboratory Tests Test 01/10/19 13:31 01/10/19 17:14 01/10/19 20:42 01/11/19 05:55 Bedside Glucose 150 178 114 White Blood Count 9.1 Red Blood Count 4.49 Hemoglobin 12.7 Hematocrit 38.7 Mean Corpuscular Volume 86.2 Mean Corpuscular 28.3 L Hemoglobin Mean Corpuscular 32.8 Hemoglobin Concent Red Cell Distribution 13.8 Width Platelet Count 216 Mean Platelet Volume 10.4 Immature Granulocytes % 0.300 Neutrophils % 63.7 Lymphocytes % 21.2 Monocytes % 9.7 Eosinophils % 4.5 Basophils % 0.6 Nucleated Red Blood 0.0 Cells % Immature Granulocytes # 0.030 Neutrophils # 5.8 Lymphocytes # 1.9 Monocytes # 0.9 Eosinophils # 0.4 Basophils # 0.1 Nucleated Red Blood 0.0 Cells # Sodium Level 131 L Potassium Level 4.1 Chloride Level 97 Carbon Dioxide Level 26 Anion Gap 8 Blood Urea Nitrogen 46 #H Creatinine 1.56 H Est Glomerular Filtrat Rate mL/min Glucose Level 114 Calcium Level 8.8 Test 01/11/19 08:01 01/11/19 11:39 Bedside Glucose 108 201 Exam/Review of Systems Exam Vitals Vital Signs Date Temp Pulse Resp B/P (MAP) Pulse Ox O2 O2 Flow FiO2 Time Delivery Rate 01/11/19 97.8 65 16 106/53 97 Room Air 11:16 (70) 01/11/19 2.0 08:16 Intake and Output 01/10/19 01/10/19 01/11/19 1515:00 23:00 07:00 IntakeIntake Total 100 ml 410 ml OutputOutput Total 1040 ml 300 ml BalanceBalance -940 ml 110 ml Results Results 24hrs Laboratory Tests Test 01/10/19 13:31 01/10/19 17:14 01/10/19 20:42 01/11/19 05:55 Bedside Glucose 150 178 114 White Blood Count 9.1 Red Blood Count 4.49 Hemoglobin 12.7 Hematocrit 38.7 Mean Corpuscular Volume 86.2 Mean Corpuscular 28.3 L Hemoglobin Mean Corpuscular 32.8 Hemoglobin Concent Red Cell Distribution 13.8 Width Platelet Count 216 Mean Platelet Volume 10.4 Immature Granulocytes % 0.300 Neutrophils % 63.7 Lymphocytes % 21.2 Monocytes % 9.7 Eosinophils % 4.5 Basophils % 0.6 Nucleated Red Blood 0.0 Cells % Immature Granulocytes # 0.030 Neutrophils # 5.8 Lymphocytes # 1.9 Monocytes # 0.9 Eosinophils # 0.4 Basophils # 0.1 Nucleated Red Blood 0.0 Cells # Sodium Level 131 L Potassium Level 4.1 Chloride Level 97 Carbon Dioxide Level 26 Anion Gap 8 Blood Urea Nitrogen 46 #H Creatinine 1.56 H Est Glomerular Filtrat Rate mL/min Glucose Level 114 Calcium Level 8.8 Test 01/11/19 08:01 01/11/19 11:39 Bedside Glucose 108 201 Medications Medication Current Medications IV Flush (NS 3 ml) 3 ml PER PROTOCOL IV ; Start 01/09/19 at 16:30 Ondansetron HCl (Zofran Inj) 4 mg Q6H PRN IV NAUSEA/VOMITING; Start 01/09/19 at 16:30 Acetaminophen (Tylenol Tab) 650 mg Q6H PRN PO .PAIN 1-3 OR TEMP Last administered on 01/10/19at 00:46; Admin Dose 650 MG; Start 01/09/19 at 16:30 Acetaminophen/ Hydrocodone Bitart ([place] (5/325)) 1 tab Q6H PRN PO .MOD PAIN 4- 6 Last administered on 01/10/19at 19:01; Admin Dose 1 TAB; Start 01/09/19 at 16:30 Morphine Sulfate (morphine) 2 mg Q4H PRN IV .SEVERE PAIN 7-10; Start 01/09/19 at 16:30 Docusate Sodium (Colace) 100 mg Q12H PRN PO .CONSTIPATION; Start 01/09/19 at 16:30 Magnesium Hydroxide (Milk Of Mag) 30 ml DAILY PRN PO .CONSTIPATION; Start 01/09/19 at 16:30 Lorazepam (Ativan) 0.5 mg Q6H PRN IV ANXIETY Last administered on 01/09/19at 22:34; Admin Dose 0.5 MG; Start 01/09/19 at 16:30 Hydralazine HCl (Apresoline) 10 mg Q6H PRN IV ELEVATED BLOOD PRESSURE; Start 01/09/19 at 16:30 Nitroglycerin (Nitroglycerin (Sl Tab) 0.4 Mg) 1 tab Q5M PRN SL ANGINA; Start 01/09/19 at 16:30 Carvedilol (Coreg) 3.125 mg BID PO Last administered on 01/11/19at 08:14; Admin Dose 3.125 MG; Start 01/09/19 at 21:00 Famotidine (Pepcid) 20 mg DAILY PO Last administered on 01/11/19at 08:14; Admin D ose 20 MG; Start 01/10/19 at 09:00 Ferrous Sulfate (Ferrous Sulfate (Ec)) 325 mg DAILY PO Last administered on 01/11/19at 08:14; Admin Dose 325 MG; Start 01/10/19 at 09:00 Gabapentin (Neurontin) 100 mg QHS PO Last administered on 01/10/19at 20:30; Admin Dose 100 MG; Start 01/09/19 at 21:00 Isosorbide Mononitrate (Imdur) 30 mg DAILY PO Last administered on 01/11/19at 08:14; Admin Dose 30 MG; Start 01/10/19 at 09:00 Diagnostic Test (Pha) (Accu-Chek) 1 ea 02 XX ; Start 01/10/19 at 02:00 Miscellaneous Information 1 ea NOTE XX ; Start 01/09/19 at 17:00 Glucose (Glutose) 15 gm Q15M PRN PO DECREASED GLUCOSE; Start 01/09/19 at 17:00 Glucose (Glutose) 22.5 gm Q15M PRN PO DECREASED GLUCOSE; Start 01/09/19 at 17:00 Dextrose (D50w Syringe) 25 ml Q15M PRN IV DECREASED GLUCOSE; Start 01/09/19 at 17:00 Dextrose (D50w Syringe) 50 ml Q15M PRN IV DECREASED GLUCOSE; Start 01/09/19 at 17:00 Glucagon (Glucagen) 1 mg Q15M PRN IM DECREASED GLUCOSE; Start 01/09/19 at 17:00 Glucose (Glutose) 15 gm Q15M PRN BUCCAL DECREASED GLUCOSE; Start 01/09/19 at 17:00 Hydralazine HCl (Apresoline) 10 mg Q4H PRN IV sbp>170; Start 01/09/19 at 17:30 Atorvastatin Calcium (Lipitor) 10 mg DAILY@21 PO Last administered on 01/10/19at 20:30; Admin Dose 10 MG; Start 01/09/19 at 21:00 Cholecalciferol (Vitamin D) 2,000 unit DAILY PO Last administered on 01/11/19at 08:14; Admin Dose 2,000 UNIT; Start 01/10/19 at 09:00 Levofloxacin/ Dextrose 50 ml @ 50 mls/hr Q24H IVPB Last administered on 01/10/19at 20:29; Admin Dose 50 MLS/HR; Start 01/10/19 at 20:00 Albuterol/ Ipratropium (Duoneb) 3 ml Q4H RESP THERAPY PRN HHN SHORTNESS OF JONATHAN ATH; Start 01/10/19 at 11:00 Hydralazine HCl (Apresoline) 25 mg BID PO Last administered on 01/11/19at 08:13; Admin Dose 25 MG; Start 01/10/19 at 21:00 Insulin Aspart (Novolog Insulin Pen) NOVOLOG *MILD* ALGORI... AC MEALS AND BEDTIME SC Last administered on 01/11/19at 11:49; Admin Dose 2 UNIT; Start 01/10/19 at 17:25 Albuterol/ Ipratropium (Duoneb) 3 ml Q6H RESP THERAPY HHN ; Start 01/11/19 at 14:00 BENTLEY LUONG Jan 11, 2019 12:08
--- NOTE | 2019-01-11 14:12 | CONS ---
Assessment/Plan Assessment/Plan Hospital Course (Demo Recall) IMPRESSION: 1. Chest pain, assess for acute coronary syndrome-neg trop x 3. Lexiscan this admit no ischemia with NL EF. Echo this admit with EF 55-6-/LVDD 2. Shortness of breath, congestive heart failure.-improved somewhat with diuresis 3. Hypertension,- now with borderline hypotension 4. Dyslipidemia. 5. Diabetes mellitus. 6. Neuropathy. 7. Increased BNP. 8. ARF-likely secondary to overdiuresis 9. asthma./copd Recc -Tele -serial ecg's -Contineu coreg/imdur/hydralazine with well controlled BP -Agree with d/c of lasix and follow volume status and possibly give some gentle IVF hydration back -Continue abx's/broncholdialtors -Chnage coreg to B1 selective BB Consultation Date/Type/Reason Admit Date/Time Jan 09, 2019 at 15:16 Initial Consult Date 01/09/19 Type of Consult Cardiology Reason for Consultation Shortness of breath Requesting Provider: BENTLEY LUONG Date/Time of Note DATE: 01/11/19 TIME: 14:08 Exam/Review of Systems Vital Signs Vitals Vital Signs Date Temp Pulse Resp B/P (MAP) Pulse Ox O2 O2 Flow FiO2 Time Delivery Rate 01/11/19 97.8 65 16 106/53 97 Room Air 11:16 (70) 01/11/19 2.0 08:16 Intake and Output 01/10/19 01/10/19 01/11/19 1515:00 23:00 07:00 IntakeIntake Total 100 ml 410 ml OutputOutput Total 1040 ml 300 ml BalanceBalance -940 ml 110 ml Exam Exam Review of Systems: CONSTITUTIONAL: No fevers, chills. PULMONARY: ongoing sob CARDIOVASCULAR: No chest pain/palpitations GASTROINTESTINAL: No nausea/vomiting. GENITOURINARY: No hematuria/dysuria. MUSCULOSKELETAL: No myagias/arthalgias. PSYCHIATRIC: The patient denies depression. NEUROLOGIC: No weakness Constitutional: alert, oriented Psych: no complaints Head: normocephalic ENMT: mucosa pink and moist Neck: supple, jvd (9 cm water) Respiratory: diminished breath sounds (at bases/B) Cardiovascular: regular rate and rhythm Gastrointestinal: non-tender Musculoskeletal: muscle tone (normal) Extremities: edema (none) Neurological: other (No focal deficits) Labs Result Diagram: 01/11/19 0555 01/11/19 0555 Results 24hrs Laboratory Tests Test 01/10/19 17:14 01/10/19 20:42 01/11/19 05:55 01/11/19 08:01 Bedside Glucose 178 114 108 White Blood Count 9.1 Red Blood Count 4.49 Hemoglobin 12.7 Hematocrit 38.7 Mean Corpuscular Volume 86.2 Mean Corpuscular 28.3 L Hemoglobin Mean Corpuscular 32.8 Hemoglobin Concent Red Cell Distribution 13.8 Width Platelet Count 216 Mean Platelet Volume 10.4 Immature Granulocytes % 0.300 Neutrophils % 63.7 Lymphocytes % 21.2 Monocytes % 9.7 Eosinophils % 4.5 Basophils % 0.6 Nucleated Red Blood 0.0 Cells % Immature Granulocytes # 0.030 Neutrophils # 5.8 Lymphocytes # 1.9 Monocytes # 0.9 Eosinophils # 0.4 Basophils # 0.1 Nucleated Red Blood 0.0 Cells # Sodium Level 131 L Potassium Level 4.1 Chloride Level 97 Carbon Dioxide Level 26 Anion Gap 8 Blood Urea Nitrogen 46 #H Creatinine 1.56 H Est Glomerular Filtrat Rate mL/min Glucose Level 114 Calcium Level 8.8 Test 01/11/19 11:39 Bedside Glucose 201 Medications Medications Current Medications IV Flush (NS 3 ml) 3 ml PER PROTOCOL IV ; Start 01/09/19 at 16:30 Ondansetron HCl (Zofran Inj) 4 mg Q6H PRN IV NAUSEA/VOMITING; Start 01/09/19 at 16:30 Acetaminophen (Tylenol Tab) 650 mg Q6H PRN PO .PAIN 1-3 OR TEMP Last administered on 01/10/19at 00:46; Admin Dose 650 MG; Start 01/09/19 at 16:30 Acetaminophen/ Hydrocodone Bitart ([place] (5/325)) 1 tab Q6H PRN PO .MOD PAIN 4- 6 Last administered on 01/10/19at 19:01; Admin Dose 1 TAB; Start 01/09/19 at 16:30 Morphine Sulfate (morphine) 2 mg Q4H PRN IV .SEVERE PAIN 7-10; Start 01/09/19 at 16:30 Docusate Sodium (Colace) 100 mg Q12H PRN PO .CONSTIPATION; Start 01/09/19 at 16:30 Magnesium Hydroxide (Milk Of Mag) 30 ml DAILY PRN PO .CONSTIPATION; Start 01/09/19 at 16:30 Lorazepam (Ativan) 0.5 mg Q6H PRN IV ANXIETY Last administered on 01/09/19at 22:34; Admin Dose 0.5 MG; Start 01/09/19 at 16:30 Hydralazine HCl (Apresoline) 10 mg Q6H PRN IV ELEVATED BLOOD PRESSURE; Start 01/09/19 at 16:30 Nitroglycerin (Nitroglycerin (Sl Tab) 0.4 Mg) 1 tab Q5M PRN SL ANGINA; Start 01/09/19 at 16:30 Carvedilol (Coreg) 3.125 mg BID PO Last administered on 01/11/19at 08:14; Admin Dose 3.125 MG; Start 01/09/19 at 21:00 Famotidine (Pepcid) 20 mg DAILY PO Last administered on 01/11/19at 08:14; Admin Dose 20 MG; Start 01/10/19 at 09:00 Ferrous Sulfate (Ferrous Sulfate (Ec)) 325 mg DAILY PO Last administered on 01/11/19at 08:14; Admin Dose 325 MG; Start 01/10/19 at 09:00 Gabapentin (Neurontin) 100 mg QHS PO Last administered on 01/10/19at 20:30; Admin Dose 100 MG; Start 01/09/19 at 21:00 Isosorbide Mononitrate (Imdur) 30 mg DAILY PO Last administered on 01/11/19at 08:14; Admin Dose 30 MG; Start 01/10/19 at 09:00 Diagnostic Test (Pha) (Accu-Chek) 1 ea 02 XX ; Start 01/10/19 at 02:00 Miscellaneous Information 1 ea NOTE XX ; Start 01/09/19 at 17:00 Glucose (Glutose) 15 gm Q15M PRN PO DECREASED GLUCOSE; Start 01/09/19 at 17:00 Glucose (Glutose) 22.5 gm Q15M PRN PO DECREASED GLUCOSE; Start 01/09/19 at 17:00 Dextrose (D50w Syringe) 25 ml Q15M PRN IV DECREASED GLUCOSE; Start 01/09/19 at 17:00 Dextrose (D50w Syringe) 50 ml Q15M PRN IV DECREASED GLUCOSE; Start 01/09/19 at 17:00 Glucagon (Glucagen) 1 mg Q15M PRN IM DECREASED GLUCOSE; Start 01/09/19 at 17:00 Glucose (Glutose) 15 gm Q15M PRN BUCCAL DECREASED GLUCOSE; Start 01/09/19 at 17:00 Hydralazine HCl (Apresoline) 10 mg Q4H PRN IV sbp>170; Start 01/09/19 at 17:30 Atorvastatin Calcium (Lipitor) 10 mg DAILY@21 PO Last administered on 01/10/19at 20:30; Admin Dose 10 MG; Start 01/09/19 at 21:00 Cholecalciferol (Vitamin D) 2,000 unit DAILY PO Last administered on 01/11/19at 08:14; Admin Dose 2,000 UNIT; Start 01/10/19 at 09:00 Levofloxacin/ Dextrose 50 ml @ 50 mls/hr Q24H IVPB Last administered on 01/10/19at 20:29; Admin Dose 50 MLS/HR; Start 01/10/19 at 20:00 Albuterol/ Ipratropium (Duoneb) 3 ml Q4H RESP THERAPY PRN HHN SHORTNESS OF BREATH; Start 01/10/19 at 11:00 Hydralazine HCl (Apresoline) 25 mg BID PO Last administered on 01/11/19at 08:13; Admin Dose 25 MG; Start 01/10/19 at 21:00 Insulin Aspart (Novolog Insulin Pen) NOVOLOG *MILD* ALGORI... AC MEALS AND BEDTIME SC Last administered on 01/11/19at 11:49; Admin Dose 2 UNIT; Start 01/10/19 at 17:25 Albuterol/ Ipratropium (Duoneb) 3 ml Q6H RESP THERAPY HHN ; Start 01/11/19 at 14:00 LAZARO LEWIS Jan 11, 2019 14:12
[2019-01-11] MEDS: ALBUTEROL/IPRATROPIUM (NEB) 3 ML AMP HHN SCH ×2 (14:15→19:49)
[2019-01-11 15:34] VITALS: BP 123/66; PULSE 68; RESP 18
[2019-01-11 20:00] VITALS: BP 117/58; PULSE 71; RESP 18
[2019-01-11] MEDS: ATORVASTATIN 10 MG TAB PO SCH (21:13)
[2019-01-11] MEDS: GABAPENTIN 100 MG CAP PO SCH (21:13)
[2019-01-11] MEDS: LEVOFLOXACIN 250MG/D5W (PMX) 50 ML IVPB SCH (21:13)
[2019-01-12] VITALS (7 sets, daily range): BP systolic 102–139; BP diastolic 6–64; PULSE 66–82; RESP 17–19
[2019-01-12] MEDS: ACCU-CHEK XX SCH (02:00)
[2019-01-12] MEDS: ALBUTEROL/IPRATROPIUM (NEB) 3 ML AMP HHN SCH ×4 (03:27→19:44)
[2019-01-12] MEDS: INSULIN ASPART [NOVOLOG] 3 ML PEN SC SCH ×2 (08:13→12:14)
[2019-01-12] MEDS: FAMOTIDINE 20 MG TAB PO SCH (09:55)
[2019-01-12] MEDS: METOPROLOL (XL) 25 MG TAB PO SCH (09:56)
[2019-01-12] MEDS: ISOSORBIDE MONONITRATE(SR)30 MG TAB PO SCH (09:56)
[2019-01-12] MEDS: CHOLECALCIFEROL 2,000 UNIT CAP PO SCH (09:57)
[2019-01-12] MEDS: FERROUS SULFATE (EC) 325 MG TAB PO SCH (09:57)
--- NOTE | 2019-01-12 10:17 | PN ---
Date/Time of Note Date/Time of Note DATE: 01/12/19 TIME: 10:15 Assessment/Plan VTE Prophylaxis Risk score (from Nsg)>0 risk: 4 SCD applied (from Nsg): Yes Pharmacological prophylaxis: other Lines/Catheters IV Catheter Type (from Nrsg): Saline Lock Assessment/Plan Hospital Course S: Patient overall still feels some weakness and back pain. Still some mild shortness of breath. Currently being seen by pulmonary team. No fevers overnight, tolerating diet. O: VS- see below PE: Constitutional: lying in bed, somewhat lethargic but answering questions appropriately Head: normocephalic, atraumatic Eyes: EOMI, PERRL Respiratory: Slightly distant breath sounds bilaterally Cardiovascular: S1, S2 heard Gastrointestinal: soft, non-tender Extremities: no bilateral lower extremity edema Neuro: No focal deficits Lexiscan myocardial perfusion study: IMPRESSION: 1. No evidence of perfusion defects. 2. No wall motion abnormalities. 3. The left ventricle ejection fraction at stress is greater than 70%. Assessment and plan: 88-year-old female past medical history of diabetes, high cholesterol, hypertension, osteoporosis, anemia, recent hyponatremia, who comes in with shortness of breath and chest pain. #Shortness of breath: Overall slowly improving, although today patient feels again slightly more weak than normal. Patient oxygen levels are stable. Symptoms somewhat relieved by DuoNeb's given. Patient denies any prior history of asthma or COPD. Symptoms likely secondary to acute bronchitis, also the could be an asthma or COPD component. -Per pulmonary recommendations, for now continue [id number] DuoNebs sheri ry 6 hours -Follow-up further recommendations from pulmonary consult for further work-up -likely will need further pulmonary function testing as outpatient. - Continue speech, PT and OT eval's, and will obtain case management consult for consideration of this for possible SNF placement # cp: Resolving now. Could be musculoskeletal source, patient has ruled out for acute coronary syndrome now. Cardiac stress test did not show any acute findings as well. -For now continue aspirin, oxygen, nitroglycerin, morphine as needed -Follow-up further cardiac recommendations # DM: A1c = 6.8. Sugars stable. -Monitor, continue sliding scale insulin #Hypertension: Blood pressure stable -Monitor, continue current medications #Anemia: Hemoglobin stable, monitor for now #History of osteoporosis: No present issues, follow-up recommendations from PT, OT consult as mentioned above Dispo: patient now open to SNF placement, again showcase maker will explore options for this if patient agrees to this Result Diagram: 01/12/1919 01/12/19 0620 Results 24hrs Laboratory Tests Test 01/11/19 11:39 01/11/19 17:26 01/11/19 20:44 01/12/19 06:19 Bedside Glucose 201 159 145 White Blood Count 11.3 #H Red Blood Count 4.79 Hemoglobin 13.3 Hematocrit 41.0 Mean Corpuscular Volume 85.6 Mean Corpuscular 27.8 L Hemoglobin Mean Corpuscular 32.4 Hemoglobin Concent Red Cell Distribution 13.8 Width Platelet Count 214 Mean Platelet Volume 10.9 H Immature Granulocytes % 0.400 Neutrophils % 67.6 Lymphocytes % 16.9 Monocytes % 10.9 Eosinophils % 3.7 Basophils % 0.5 Nucleated Red Blood 0.0 Cells % Immature Granulocytes # 0.050 H Neutrophils # 7.6 H Lymphocytes # 1.9 Monocytes # 1.2 H Eosinophils # 0.4 Basophils # 0.1 Nucleated Red Blood 0.0 Cells # Test 01/12/19 06:20 01/12/19 08:01 Sodium Level 134 L Potassium Level 4.0 Chloride Level 102 Carbon Dioxide Level 24 Anion Gap 8 Blood Urea Nitrogen 43 H Creatinine 1.30 H Est Glomerular Filtrat Rate mL/min Glucose Level 151 Calcium Level 8.9 Bedside Glucose 155 Exam/Review of Systems Exam Vitals Vital Signs Date Temp Pulse Resp B/P (MAP) Pulse Ox O2 O2 Flow FiO2 Time Delivery Rate 01/12/19 2.0 07:54 01/12/19 68 18 95 Nasal 07:54 Cannula 01/12/19 97.8 137/62 07:16 (87) Intake and Output 01/11/19 01/11/19 01/12/19 1515:00 23:00 07:00 IntakeIntake Total 340 ml 380 ml 350 ml OutputOutput Total 400 ml 500 ml BalanceBalance -60 ml -120 ml 350 ml Results Results 24hrs Laboratory Tests Test 01/11/19 11:39 01/11/19 17:26 01/11/19 20:44 01/12/19 06:19 Bedside Glucose 201 159 145 White Blood Count 11.3 #H Red Blood Count 4.79 Hemoglobin 13.3 Hematocrit 41.0 Mean Corpuscular Volume 85.6 Mean Corpuscular 27.8 L Hemoglobin Mean Corpuscular 32.4 Hemoglobin Concent Red Cell Distribution 13.8 Width Platelet Count 214 Mean Platelet Volume 10.9 H Immature Granulocytes % 0.400 Neutrophils % 67.6 Lymphocytes % 16.9 Monocytes % 10.9 Eosinophils % 3.7 Basophils % 0.5 Nucleated Red Blood 0.0 Cells % Immature Granulocytes # 0.050 H Neutrophils # 7.6 H Lymphocytes # 1.9 Monocytes # 1.2 H Eosinophils # 0.4 Basophils # 0.1 Nucleated Red Blood 0.0 Cells # Test 01/12/19 06:20 01/12/19 08:01 Sodium Level 134 L Potassium Level 4.0 Chloride Level 102 Carbon Dioxide Level 24 Anion Gap 8 Blood Urea Nitrogen 43 H Creatinine 1.30 H Est Glomerular Filtrat Rate mL/min Glucose Level 151 Calcium Level 8.9 Bedside Glucose 155 Medications Medication Current Medications IV Flush (NS 3 ml) 3 ml PER PROTOCOL IV ; Start 01/09/19 at 16:30 Ondansetron HCl (Zofran Inj) 4 mg Q6H PRN IV NAUSEA/VOMITING; Start 01/09/19 at 16:30 Acetaminophen (Tylenol Tab) 650 mg Q6H PRN PO .PAIN 1-3 OR TEMP Last ad ministered on 01/10/19at 00:46; Admin Dose 650 MG; Start 01/09/19 at 16:30 Acetaminophen/ Hydrocodone Bitart ([place] (5/325)) 1 tab Q6H PRN PO .MOD PAIN 4- 6 Last administered on 01/10/19at 19:01; Admin Dose 1 TAB; Start 01/09/19 at 16:30 Morphine Sulfate (morphine) 2 mg Q4H PRN IV .SEVERE PAIN 7-10; Start 01/09/19 at 16:30 Docusate Sodium (Colace) 100 mg Q12H PRN PO .CONSTIPATION; Start 01/09/19 at 16:30 Magnesium Hydroxide (Milk Of Mag) 30 ml DAILY PRN PO .CONSTIPATION; Start 01/09/19 at 16:30 Lorazepam (Ativan) 0.5 mg Q6H PRN IV ANXIETY Last administered on 01/09/19at 22:34; Admin Dose 0.5 MG; Start 01/09/19 at 16:30 Hydralazine HCl (Apresoline) 10 mg Q6H PRN IV ELEVATED BLOOD PRESSURE; Start 01/09/19 at 16:30 Nitroglycerin (Nitroglycerin (Sl Tab) 0.4 Mg) 1 tab Q5M PRN SL ANGINA; Start 01/09/19 at 16:30 Famotidine (Pepcid) 20 mg DAILY PO Last administered on 01/12/19at 09:55; Admin Dose 20 MG; Start 01/10/19 at 09:00 Ferrous Sulfate (Ferrous Sulfate (Ec)) 325 mg DAILY PO Last administered on 01/12/19at 09:57; Admin Dose 325 MG; Start 01/10/19 at 09:00 Gabapentin (Neurontin) 100 mg QHS PO Last administered on 01/11/19at 21:13; Admin Dose 100 MG; Start 01/09/19 at 21:00 Isosorbide Mononitrate (Imdur) 30 mg DAILY PO Last administered on 01/12/19at 09:56; Admin Dose 30 MG; Start 01/10/19 at 09:00 Diagnostic Test (Pha) (Accu-Chek) 1 ea 02 XX ; Start 01/10/19 at 02:00 Miscellaneous Information 1 ea NOTE XX ; Start 01/09/19 at 17:00 Glucose (Glutose) 15 gm Q15M PRN PO DECREASED GLUCOSE; Start 01/09/19 at 17:00 Glucose (Glutose) 22.5 gm Q15M PRN PO DECREASED GLUCOSE; Start 01/09/19 at 17:00 Dextrose (D50w Syringe) 25 ml Q15M PRN IV DECREASED GLUCOSE; Start 01/09/19 at 17:00 Dextrose (D50w Syringe) 50 ml Q15M PRN IV DECREASED GLUCOSE; Start 01/09/19 at 17:00 Glucagon (Glucagen) 1 mg Q15M PRN IM DECREASED GLUCOSE; Start 01/09/19 at 17:00 Glucose (Glutose) 15 gm Q15M PRN BUCCAL DECREASED GLUCOSE; Start 01/09/19 at 17:00 Hydralazine HCl (Apresoline) 10 mg Q4H PRN IV sbp>170; Start 01/09/19 at 17:30 Atorvastatin Calcium (Lipitor) 10 mg DAILY@21 PO Last administered on 01/11/19at 21:13; Admin Dose 10 MG; Start 01/09/19 at 21:00 Cholecalciferol (Vitamin D) 2,000 unit DAILY PO Last administered on 01/12/19 09:57; Admin Dose 2,000 UNIT; Start 01/10/19 at 09:00 Albuterol/ Ipratropium (Duoneb) 3 ml Q4H RESP THERAPY PRN HHN SHORTNESS OF BREATH; Start 01/10/19 at 11:00 Hydralazine HCl (Apresoline) 25 mg BID PO Last administered on 01/12/19 09:56; Admin Dose 25 MG; Start 01/10/19 at 21:00 Insulin Aspart (Novolog Insulin Pen) NOVOLOG *MILD* ALGORI... AC MEALS AND BEDTIME SC Last administered on 01/12/19 08:13; Admin Dose 1 UNIT; Start 01/10/19 at 17:25 Albuterol/ Ipratropium (Duoneb) 3 ml Q6H RESP THERAPY HHN Last administered on 01/12/19 07:53; Admin Dose 3 ML; Start 01/11/19 at 14:00 Metoprolol Succinate (Toprol Xl) 12.5 mg DAILY PO Last administered on 01/12/19 09:56; Admin Dose 12.5 MG; Start 01/12/19 at 09:00 Nitrofurantoin Macrocrystals (Macrobid) 100 mg BID PO ; Start 01/12/19 at 10:30; Status BENTLEY MENDOZA Jan 12, 2019 10:17
[2019-01-12] MEDS ORDERED: NITROFURANTOIN (SR) 100 MG CAP PO SCH (10:30)
--- NOTE | 2019-01-12 10:35 | CONS ---
Consultation Date/Type/Reason Admit Date/Time Jan 09, 2019 at 15:16 Initial Consult Date Type of Consult Pulmonary Patient's condition is stable. Still complains of mild chest congestion. Denies any wheezing, sputum production or coughing. General exam; elderly woman, awake alert, currently in no distress. HEENT exam; supple neck, no JVD. No lymphadenopathy. Midline trachea. No thyromegaly. No neck bruits. Patient has fair dentition. No neck masses. Chest exam; diminished breath sounds bilaterally. No added sounds. S1-S2 audible, no murmurs. Regular rhythm. Abdomen exam; soft, nontender. No organomegaly. Bowel sounds are audible. Extremity exam; no peripheral edema clubbing. 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 Assessment and recommendations; 1. Patient admitted with shortness of breath with what appears to be acute bronchitis without any history of COPD or asthma. 2. Negative Lexiscan stress test yesterday. 3. History of hypertension. 4. Based upon examination as well as imaging studies, CHF is unlikely. 5. Mild increase in serum creatinine. Likely diuretic induced. Continue current supportive care. Discontinue further Lasix. Monitor renal function. Add DuoNeb every 6 hours scheduled. Requesting Provider: BENTLEY LUONG Date/Time of Note DATE: 01/12/19 TIME: 10:33 24 HR Interval Summary Free Text/Dictation Patient's condition is stable. Complains of generalized weakness. Denies any coughing, wheezing, shortness of breath. General exam; elderly woman, awake alert, currently in no distress. On 2 L nasa l cannula. H ENT exam; supple neck, no JVD. No lymphadenopathy. Midline trachea. No thyromegaly. No neck masses. Chest exam; clear to auscultation. S1-S2 audible, no murmurs. Regular rhythm. Abdomen exam; soft, no organomegaly. Nontender. Bowel sounds audible. Extremity exam; peripheral edema clubbing. 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 Assessment and recommendations; 1. Patient admitted with acute bronchitis with wheezing with interval improvement. 2. History of diabetes and hypertension. 3. Mild increase in serum creatinine, likely diuretic induced. Serum creatinine is now improving. 4. Generalized deconditioning. Continue current supportive care. Patient would benefit [facility]. Exam/Review of Systems Exam Vitals Vital Signs Date Temp Pulse Resp B/P (MAP) Pulse Ox O2 O2 Flow FiO2 Time Delivery Rate 01/12/19 2.0 07:54 01/12/19 68 18 95 Nasal 07:54 Cannula 01/12/19 97.8 137/62 07:16 (87) Intake and Output 01/11/19 01/11/19 01/12/19 1515:00 23:00 07:00 IntakeIntake Total 340 ml 380 ml 350 ml OutputOutput Total 400 ml 500 ml BalanceBalance -60 ml -120 ml 350 ml Results Result Diagram: 01/12/1919 01/12/19 0620 Results 24hrs Laboratory Tests Test 01/11/19 11:39 01/11/19 17:26 01/11/19 20:44 01/12/19 06:19 Bedside Glucose 201 159 145 White Blood Count 11.3 #H Red Blood Count 4.79 Hemoglobin 13.3 Hematocrit 41.0 Mean Corpuscular Volume 85.6 Mean Corpuscular 27.8 L Hemoglobin Mean Corpuscular 32.4 Hemoglobin Concent Red Cell Distribution 13.8 Width Platelet Count 214 Mean Platelet Volume 10.9 H Immature Granulocytes % 0.400 Neutrophils % 67.6 Lymphocytes % 16.9 Monocytes % 10.9 Eosinophils % 3.7 Basophils % 0.5 Nucleated Red Blood 0.0 Cells % Immature Granulocytes # 0.050 H Neutrophils # 7.6 H Lymphocytes # 1.9 Monocytes # 1.2 H Eosinophils # 0.4 Basophils # 0.1 Nucleated Red Blood 0.0 Cells # Test 01/12/19 06:20 01/12/19 08:01 Sodium Level 134 L Potassium Level 4.0 Chloride Level 102 Carbon Dioxide Level 24 Anion Gap 8 Blood Urea Nitrogen 43 H Creatinine 1.30 H Est Glomerular Filtrat Rate mL/min Glucose Level 151 Calcium Level 8.9 Bedside Glucose 155 Medications Medication Current Medications IV Flush (NS 3 ml) 3 ml PER PROTOCOL IV ; Start 01/09/19 at 16:30 Ondansetron HCl (Zofran Inj) 4 mg Q6H PRN IV NAUSEA/VOMITING; Start 01/09/19 at 16:30 Acetaminophen (Tylenol Tab) 650 mg Q6H PRN PO .PAIN 1-3 OR TEMP Last administered on 01/10/19at 00:46; Admin Dose 650 MG; Start 01/09/19 at 16:30 Acetaminophen/ Hydrocodone Bitart ([place] (5/325)) 1 tab Q6H PRN PO .MOD PAIN 4- 6 Last administered on 01/10/19at 19:01; Admin Dose 1 TAB; Start 01/09/19 at 16:30 Morphine Sulfate (morphine) 2 mg Q4H PRN IV .SEVERE PAIN 7-10; Start 01/09/19 at 16:30 Docusate Sodium (Colace) 100 mg Q12H PRN PO .CONSTIPATION; Start 01/09/19 at 16:30 Magnesium Hydroxide (Milk Of Mag) 30 ml DAILY PRN PO .CONSTIPATION; Start 01/09/19 at 16:30 Lorazepam (Ativan) 0.5 mg Q6H PRN IV ANXIETY Last administered on 01/09/19at 22:34; Admin Dose 0.5 MG; Start 01/09/19 at 16:30 Hydralazine HCl (Apresoline) 10 mg Q6H PRN IV ELEVATED BLOOD PRESSURE; Start 01/09/19 at 16:30 Nitroglycerin (Nitroglycerin (Sl Tab) 0.4 Mg) 1 tab Q5M PRN SL ANGINA; Start 01/09/19 at 16:30 Famotidine (Pepcid) 20 mg DAILY PO Last administered on 01/12/19at 09:55; Admin Dose 20 MG; Start 01/10/19 at 09:00 Ferrous Sulfate (Ferrous Sulfate (Ec)) 325 mg DAILY PO Last administered on 01/12/19at 09:57; Admin Dose 325 MG; Start 01/10/19 at 09:00 Gabapentin (Neurontin) 100 mg QHS PO Last administered on 01/11/19at 21:13; Admin Dose 100 MG; Start 01/09/19 at 21:00 Isosorbide Mononitrate (Imdur) 30 mg DAILY PO Last administered on 01/12/19at 09:56; Admin Dose 30 MG; Start 01/10/19 at 09:00 Diagnostic Test (Pha) (Accu-Chek) 1 ea 02 XX ; Start 01/10/19 at 02:00 Miscellaneous Information 1 ea NOTE XX ; Start 01/09/19 at 17:00 Glucose (Glutose) 15 gm Q15M PRN PO DECREASED GLUCOSE; Start 01/09/19 at 17:00 Glucose (Glutose) 22.5 gm Q15M PRN PO DECREASED GLUCOSE; Start 01/09/19 at 17:00 Dextrose (D50w Syringe) 25 ml Q15M PRN IV DECREASED GLUCOSE; Start 01/09/19 at 17:00 Dextrose (D50w Syringe) 50 ml Q15M PRN IV DECREASED GLUCOSE; Start 01/09/19 at 17:00 Glucagon (Glucagen) 1 mg Q15M PRN IM DECREASED GLUCOSE; Start 01/09/19 at 17:00 Glucose (Glutose) 15 gm Q15M PRN BUCCAL DECREASED GLUCOSE; Start 01/09/19 at 17:00 Hydralazine HCl (Apresoline) 10 mg Q4H PRN IV sbp>170; Start 01/09/19 at 17:30 Atorvastatin Calcium (Lipitor) 10 mg DAILY@21 PO Last administered on 01/11/19 21:13; Admin Dose 10 MG; Start 01/09/19 at 21:00 Cholecalciferol (Vitamin D) 2,000 unit DAILY PO Last administered on 01/12/19 09:57; Admin Dose 2,000 UNIT; Start 01/10/19 at 09:00 Albuterol/ Ipratropium (Duoneb) 3 ml Q4H RESP THERAPY PRN HHN SHORTNESS OF BREATH; Start 01/10/19 at 11:00 Hydralazine HCl (Apresoline) 25 mg BID PO Last administered on 01/12/19 09:56; Admin Dose 25 MG; Start 01/10/19 at 21:00 Insulin Aspart (Novolog Insulin Pen) NOVOLOG *MILD* ALGORI... AC MEALS AND BEDTIME SC Last administered on 01/12/19 08:13; Admin Dose 1 UNIT; Start 01/10/19 at 17:25 Albuterol/ Ipratropium (Duoneb) 3 ml Q6H RESP THERAPY HHN Last administered on 01/12/19 07:53; Admin Dose 3 ML; Start 01/11/19 at 14:00 Metoprolol Succinate (Toprol Xl) 12.5 mg DAILY PO Last administered on 01/12/19 09:56; Admin Dose 12.5 MG; Start 01/12/19 at 09:00 Nitrofurantoin Macrocrystals (Macrobid) 100 mg BID PO ; Start 01/12/19 at 10:30; Status JANIS SABA Jan 12, 2019 10:34
[2019-01-12] MEDS ORDERED: TRIMETHOPRIM/SULFAMETHOX (SS) TAB PO SCH (12:30)
[2019-01-12] MEDS: TRIMETHOPRIM/SULFAMETHOX (DS) TAB PO SCH (13:41)
--- NOTE | 2019-01-12 15:59 | CONS ---
Assessment/Plan Assessment/Plan Hospital Course (Demo Recall) Subjective She feels better, no CP recently. Gen: Denies fever, chills CV: Denies chest pain, palpitations, SOB, TORRES, orthopnea, PNA, edema, claudication Resp: Denies SOB or cough GI: Denies nausea, vomiting, diarrhea, constipation, abdominal pain Neuro: Denies lightheadedness, dizziness, presyncope/syncope Medications and allergies reviewed Past medical, surgical, family and social history reviewed. Objective General: WD/WN, NAD HEENT: NC/AT, PERRLA, dry mucus membranes CV: RRR, grade 1/6 systolic murmur, S1/S2, no S3/S4, no JVD, no carotid bruits Respiratory: CTAB, no W/C/R, non-labored breathing GI: abdomen soft, NT/ND, normoactive bowel sounds Vascular: extremities are warm, 2+ radial/DT/PT pulses bilaterally, no edema Neuro: A/O x3, no focal deficits Assessment & Plan IMPRESSION: 1. Chest pain, ACS ruled out, neg trop x 3. Lexiscan this admit no ischemia with NL EF. Echo this admit with EF 55-60/LVDD 2. Acute bronchitis 3. Hypertension,- now with borderline hypotension 4. Dyslipidemia. 5. Diabetes mellitus. 6. Neuropathy. 7. Increased BNP. 8. ARF-likely secondary to overdiuresis - improving Recc -Tele -Continue current medications -continue treatment for bronchitis Consultation Date/Type/Reason Admit Date/Time Jan 09, 2019 at 15:16 Initial Consult Date Type of Consult Cardiology Requesting Provider: BNETLEY LUONG Date/Time of Note DATE: 01/12/19 TIME: 15:54 Exam/Review of Systems Vital Signs Vitals Vital Signs Date Temp Pulse Resp B/P (MAP) Pulse Ox O2 O2 Flow FiO2 Time Delivery Rate 01/12/19 98.0 66 18 139/63 97 Nasal 15:10 (88) Cannula 01/12/19 2.0 14:43 Intake and Output 01/11/19 01/11/19 01/12/19 1515:00 23:00 07:00 IntakeIntake Total 340 ml 380 ml 350 ml OutputOutput Total 400 ml 500 ml BalanceBalance -60 ml -120 ml 350 ml Labs Result Diagram: 01/12/196183/19 0620 Results 24hrs Laboratory Tests Test 01/11/19 17:26 01/11/19 20:44 01/12/19 06:19 01/12/19 06:20 Bedside Glucose 159 145 White Blood Count 11.3 #H Red Blood Count 4.79 Hemoglobin 13.3 Hematocrit 41.0 Mean Corpuscular Volume 85.6 Mean Corpuscular 27.8 L Hemoglobin Mean Corpuscular 32.4 Hemoglobin Concent Red Cell Distribution 13.8 Width Platelet Count 214 Mean Platelet Volume 10.9 H Immature Granulocytes % 0.400 Neutrophils % 67.6 Lymphocytes % 16.9 Monocytes % 10.9 Eosinophils % 3.7 Basophils % 0.5 Nucleated Red Blood 0.0 Cells % Immature Granulocytes # 0.050 H Neutrophils # 7.6 H Lymphocytes # 1.9 Monocytes # 1.2 H Eosinophils # 0.4 Basophils # 0.1 Nucleated Red Blood 0.0 Cells # Sodium Level 134 L Potassium Level 4.0 Chloride Level 102 Carbon Dioxide Level 24 Anion Gap 8 Blood Urea Nitrogen 43 H Creatinine 1.30 H Est Glomerular Filtrat Rate mL/min Glucose Level 151 Calcium Level 8.9 Test 01/12/19 08:01 01/12/19 12:09 Bedside Glucose 155 197 Medications Medications Current Medications IV Flush (NS 3 ml) 3 ml PER PROTOCOL IV ; Start 01/09/19 at 16:30 Ondansetron HCl (Zofran Inj) 4 mg Q6H PRN IV NAUSEA/VOMITING; Start 01/09/19 at 16:30 Acetaminophen (Tylenol Tab) 650 mg Q6H PRN PO .PAIN 1-3 OR TEMP Last administered on 01/10/19at 00:46; Admin Dose 650 MG; Start 01/09/19 at 16:30 Acetaminophen/ Hydrocodone Bitart ([place] (5/325)) 1 tab Q6H PRN PO .MOD PAIN 4- 6 Last administered on 01/10/19at 19:01; Admin Dose 1 TAB; Start 01/09/19 at 16:30 Morphine Sulfate (morphine) 2 mg Q4H PRN IV .SEVERE PAIN 7-10; Start 01/09/19 at 16:30 Docusate Sodium (Colace) 100 mg Q12H PRN PO .CONSTIPATION Last administered on 01/12/19at 10:36; Admin Dose 100 MG; Start 01/09/19 at 16:30 Magnesium Hydroxide (Milk Of Mag) 30 ml DAILY PRN PO .CONSTIPATION Last admini stered on 01/12/19at 10:36; Admin Dose 30 ML; Start 01/09/19 at 16:30 Lorazepam (Ativan) 0.5 mg Q6H PRN IV ANXIETY Last administered on 01/09/19at 22:34; Admin Dose 0.5 MG; Start 01/09/19 at 16:30 Hydralazine HCl (Apresoline) 10 mg Q6H PRN IV ELEVATED BLOOD PRESSURE; Start 01/09/19 at 16:30 Nitroglycerin (Nitroglycerin (Sl Tab) 0.4 Mg) 1 tab Q5M PRN SL ANGINA; Start 01/09/19 at 16:30 Famotidine (Pepcid) 20 mg DAILY PO Last administered on 01/12/19at 09:55; Admin Dose 20 MG; Start 01/10/19 at 09:00 Ferrous Sulfate (Ferrous Sulfate (Ec)) 325 mg DAILY PO Last administered on 01/12/19at 09:57; Admin Dose 325 MG; Start 01/10/19 at 09:00 Gabapentin (Neurontin) 100 mg QHS PO Last administered on 01/11/19at 21:13; Admin Dose 100 MG; Start 01/09/19 at 21:00 Isosorbide Mononitrate (Imdur) 30 mg DAILY PO Last administered on 01/12/19at 09:56; Admin Dose 30 MG; Start 01/10/19 at 09:00 Diagnostic Test (Pha) (Accu-Chek) 1 ea 02 XX ; Start 01/10/19 at 02:00 Miscellaneous Information 1 ea NOTE XX ; Start 01/09/19 at 17:00 Glucose (Glutose) 15 gm Q15M PRN PO DECREASED GLUCOSE; Start 01/09/19 at 17:00 Glucose (Glutose) 22.5 gm Q15M PRN PO DECREASED GLUCOSE; Start 01/09/19 at 17:00 Dextrose (D50w Syringe) 25 ml Q15M PRN IV DECREASED GLUCOSE; Start 01/09/19 at 17:00 Dextrose (D50w Syringe) 50 ml Q15M PRN IV DECREASED GLUCOSE; Start 01/09/19 at 17:00 Glucagon (Glucagen) 1 mg Q15M PRN IM DECREASED GLUCOSE; Start 01/09/19 at 17:00 Glucose (Glutose) 15 gm Q15M PRN BUCCAL DECREASED GLUCOSE; Start 01/09/19 at 17:00 Hydralazine HCl (Apresoline) 10 mg Q4H PRN IV sbp>170; Start 01/09/19 at 17:30 Atorvastatin Calcium (Lipitor) 10 mg DAILY@21 PO Last administered on 01/11/19at 21:13; Admin Dose 10 MG; Start 01/09/19 at 21:00 Cholecalciferol (Vitamin D) 2,000 unit DAILY PO Last administered on 01/12/19 09:57; Admin Dose 2,000 UNIT; Start 01/10/19 at 09:00 Albuterol/ Ipratropium (Duoneb) 3 ml Q4H RESP THERAPY PRN HHN SHORTNESS OF BREATH; Start 01/10/19 at 11:00 Hydralazine HCl (Apresoline) 25 mg BID PO Last administered on 01/12/19 09:56; Admin Dose 25 MG; Start 01/10/19 at 21:00 Insulin Aspart (Novolog Insulin Pen) NOVOLOG *MILD* ALGORI... AC MEALS AND BEDTIME SC Last administered on 01/12/19 12:14; Admin Dose 2 UNIT; Start 01/10/19 at 17:25 Albuterol/ Ipratropium (Duoneb) 3 ml Q6H RESP THERAPY HHN Last administered on 01/12/19at 14:42; Admin Dose 3 ML; Start 01/11/19 at 14:00 Metoprolol Succinate (Toprol Xl) 12.5 mg DAILY PO Last administered on 01/12/19 09:56; Admin Dose 12.5 MG; Start 01/12/19 at 09:00 Trimethoprim/ Sulfamethoxazole (Bactrim (Ds)) 1 tab DAILY PO Last administered on 01/12/19at 13:41; Admin Dose 1 TAB; Start 01/12/19 at 12:30; Stop 01/14/19 at 09:01 CARLOS PEOPLES DO Jan 12, 2019 15:59
[2019-01-12] MEDS: Insulin NOVOLOG SS MILD Algorithm (SS with meals and bedtime) SC SCH ×2 (17:58→21:00)
[2019-01-12] MEDS ORDERED: ACCUCHECK 2 HOURS AFTER FIRST BITE XX SCH (19:55)
[2019-01-12] MEDS: ATORVASTATIN 10 MG TAB PO SCH (21:24)
[2019-01-12] MEDS: GABAPENTIN 100 MG CAP PO SCH (21:24)
[2019-01-13] MEDS ORDERED: ACCUCHECK AT 2AM (Patients on SS coverage) XX SCH (02:00)
[2019-01-13] MEDS: ACCU-CHEK XX SCH (02:00)
[2019-01-13] MEDS: ALBUTEROL/IPRATROPIUM (NEB) 3 ML AMP HHN SCH ×3 (02:25→13:54)
[2019-01-13 03:42] VITALS: BP 141/66; PULSE 70; RESP 19
[2019-01-13 07:24] VITALS: BP 153/65; PULSE 64; RESP 16
[2019-01-13] MEDS: Insulin NOVOLOG SS MILD Algorithm (SS with meals and bedtime) SC SCH ×2 (08:24→13:32)
[2019-01-13] MEDS: FERROUS SULFATE (EC) 325 MG TAB PO SCH (10:38)
[2019-01-13] MEDS: CHOLECALCIFEROL 2,000 UNIT CAP PO SCH (10:38)
[2019-01-13] MEDS: TRIMETHOPRIM/SULFAMETHOX (DS) TAB PO SCH (10:38)
[2019-01-13] MEDS: ISOSORBIDE MONONITRATE(SR)30 MG TAB PO SCH (10:38)
[2019-01-13] MEDS: METOPROLOL (XL) 25 MG TAB PO SCH (10:39)
[2019-01-13] MEDS: FAMOTIDINE 20 MG TAB PO SCH (10:42)
--- NOTE | 2019-01-13 10:58 | PDOCDIS ---
Discharge Instructions CONDITION [id number] Patient Condition: [id number] Stable BENTLEY LUONG Jan 13, 2019 10:58
--- NOTE | 2019-01-13 11:02 | DS ---
Date/Time of Note Date/Time of Note DATE: 01/13/19 TIME: 10:59 Discharge Summary Admission/Discharge Info Admit Date/Time Jan 09, 2019 at 15:16 Discharge Date/Time Discharge Diagnosis #Shortness of breath: Overall slowly improving- Symptoms likely secondary to a cute bronchitis, also the could be an asthma or COPD component. # cp: Resolving now. Could be musculoskeletal source, patient has ruled out for acute coronary syndrome now. Cardiac stress test did not show any acute findings as well. # DM: A1c = 6.8. Sugars stable. #Hypertension: Blood pressure stable #Anemia: Hemoglobin stable, monitor for now #History of osteoporosis Patient Condition: Stable Procedures A. Lexiscan myocardial perfusion study: IMPRESSION: 1. No evidence of perfusion defects. 2. No wall motion abnormalities. 3. The left ventricle ejection fraction at stress is greater than 70%. Hx of Present Illness 88-year-old female past medical history of diabetes, high cholesterol, hypertension, osteoporosis, anemia, recent hyponatremia, who comes in with shortness of breath and chest pain. Patient states that symptoms have been going off and on for the last few days but gotten worse in the last 1 to 2 days. She denies any upper or lower GI bleeding, she has some mild nausea symptoms but no vomiting. She is also had decreased ambulation status due to weakness. Patient recently went to a new primary care doctor a few days ago and was told she had low sodium and was given a prescription for tolvaptan, which she was not able to fill because of the cost of the medicine being too high and the insurance not covering it. She also at that time was prescribed meclizine for some dizziness symptoms which mildly relieved those symptoms. She was supposed to also follow-up with her boiler inspector in the next few days as they were going to schedule an outpatient stress test looks like. Patient denies any history of any prior stroke or heart attack. When she came in today she was given a jordon thing treatment which helped relieve her shortness of breath symptoms, but she was not found to be hypoxic. CTA chest was performed which showed: IMPRESSION: 1. Slightly limited evaluation of the pulmonary arteries due to respiratory motion artifact. No large or central pulmonary emboli. 2. No aortic aneurysm or dissection. 3. Cardiomegaly and coronary calcification. 4. Moderate central lobular emphysema. No confluent pneumonia, pleural fluid or pneumothorax. 5. Moderate left shoulder joint fluid and synovial thickening. 6. Focal step-off in the manubrium which is likely artifactual due to motion rather than true fracture Hospital Course Patient was admitted and ruled out for acute coronary syndrome. Patient was seen by cardiology and pulmonary teams during this hospital stay. She was also given breathing treatments for shortness of breath and signs of acute bronchitis and mild COPD and asthma exacerbation. Her symptoms slowly improved. She still complained of some weakness symptoms overall on the day of discharge. But her vital signs are stable. Cardiac nuclear stress test was negative for any acute findings. She was placed on antibiotics for her acute bronchitis and her leukocytosis resolved. Patient was evaluated by physical therapy team. Because she still having some overall weakness symptoms, despite improvement in her cardiopulmonary function she will be discharged to group home facility later today in improved condition. See printed medicine reconciliation sheet for full list of discharge medications. Home Meds Reported Medications Tolvaptan (Samsca) 15 Mg Tablet, 15 MG PO Q7D, TAB 01/09/19 Ondansetron Hcl* (Zofran*) 4 Mg Tab, 4 MG PO NEEDED PRN for NAUSEA AND OR VOMITING, TAB 01/09/19 Loperamide Hcl* (Loperamide Hcl*) 2 Mg Cap, 2 MG PO NEEDED, CAP 01/09/19 Famotidine* (Famotidine*) 20 Mg Tablet, 20 MG PO DAILY, #30 TAB 01/09/19 Meclizine Hcl* (Meclizine Hcl*) 25 Mg Tablet, 25 MG PO NEEDED PRN for DIZZINESS, TAB 01/09/19 Lubiprostone* (Amitiza*) 8 Mcg Capsule, 4 MCG PO NEEDED, #60 CAP 01/09/19 Aspirin* (Aspirin* EC) 81 Mg Tablet.dr, 81 MG PO DAILY, TAB 01/09/19 Amlodipine Besylate* (Norvasc*) 10 Mg Tablet, 10 MG PO DAILY, TAB 01/09/19 Losartan Potassium* (Losartan Potassium*) 50 Mg Tablet, 50 MG PO DAILY, TAB 01/09/19 Gabapentin* (Gabapentin*) 100 Mg Capsule, 100 MG PO QHS, #90 CAP 01/09/19 Simvastatin* (Zocor*) 10 Mg Tablet, 10 MG PO QHS, #30 TAB 01/09/19 Ferrous Sulfate* (Ferrous Sulfate*) 325 Mg Tabec, 325 MG PO DAILY, TAB 01/09/19 Isosorbide Mononitrate* (Isosorbide Mononitrate*) 30 Mg Tab.er.24h, 30 MG PO DAILY, TAB 01/09/19 Demeclocycline Hcl* (Demeclocycline Hcl*) 300 Mg Tablet, 300 MG PO BID, #60 TAB 01/09/19 Hydralazine Hcl* (Hydralazine Hcl*) 50 Mg Tab, 50 MG PO BID, #60 TAB 01/09/19 Carvedilol* (Carvedilol*) 3.125 Mg Tablet, 3.125 MG PO BID, #60 TAB 01/09/19 Metformin Hcl* (Metformin Hcl*) 500 Mg Tablet, 500 MG PO WITH BREAKFAST DINNE, #60 TAB 01/09/19 Glimepiride* (Glimepiride*) 1 Mg Tablet, 1 MG PO WITH BREAKFAST DINNE, TAB 01/09/19 Cholecalciferol (Vitamin D3) (Vitamin D-3) 2,000 Unit Tablet, 2000 UNIT PO DAILY, TAB 01/09/19 Calcium Carbonate/Vitamin D3 (Calcium 500 + Vit D 200 Tablet) 1 Each Tablet, 1 EACH PO BID, TAB 01/09/19 Discontinued Reported Medications Cholecalciferol (Vitamin D3) (VITAMIN D-3) 2,000 Unit Capsule, 2000 UNIT PO DAILY, CAP 03/11/16 Hydralazine Hcl* (Hydralazine Hcl*) 50 Mg Tab, 50 MG PO Q8, #90 TAB 03/10/16 Simvastatin* (Zocor*) 10 Mg Tablet, 10 MG PO HS, TAB 01/27/15 Isosorbide Mononitrate* (Isosorbide Mononitrate*) 30 Mg Tab.er.24h, 30 MG PO DAILY, TAB 08/26/14 Calcium Carbonate* ([place]-500*) 1 Tab Tablet, 1 TAB PO BID, TAB 03/02/14 Glimepiride* (Glimepiride*) 1 Mg Tablet, 1 MG PO BID, TAB 03/02/14 Ferrous Sulfate* (Ferrous Sulfate*) 325 Mg Tablet, 325 MG PO DAILY, TAB 03/02/14 Metformin Hcl* (Metformin Hcl*) 500 Mg Tablet, 500 MG PO BID 08/30/12 Ibandronate Sodium (Boniva) 150 Mg Tablet, 150 MG PO ONCE A MONTH 08/30/12 Discontinued Scripts Losartan Potassium* (Losartan Potassium*) 50 Mg Tablet, 25 MG PO DAILY, #30 TAB Prov:FELICITA MENDIOLA MD 08/26/16 Carvedilol* (Carvedilol*) 6.25 Mg Tablet, 6.25 MG PO BID, #60 TAB Prov:FELICITA MENDIOLA MD 08/26/16 Sodium Chloride* (Sodium Chloride*) 1 Gm Tablet, 1 GM PO BID for 30 Days, #60 TAB Prov:FELICITA MENDIOLA MD 08/26/16 Primary Care Provider Abdulkadir Tompkins MD Time spent on discharge: > 30 minutes Pending Labs Laboratory Tests Test 01/12/19 12:09 01/12/19 17:34 01/12/19 21:21 01/13/19 06:26 Bedside 197 177 136 Glucose mg/dL (70-220) mg/dL (70-220) mg/dL (70-220) White Blood 10.5 Count 10^3/ul (4.8-1 0.8) Red Blood 4.68 Count 10^6/ul (4.20- 5.40) Hemoglobin 13.0 g/dl (12.0-16. 0) Hematocrit 40.5 % (37.0-47.0) Mean 86.5 Corpuscular fl (82.0-101.0 Volume ) Mean 27.8 Corpuscular pg (29.0-33.0) Hemoglobin Mean 32.1 Corpuscular g/dl (32.0-37. Hemoglobin Conc 0) ent Red Cell 13.8 Distribution % (11.5-14.5) Width Platelet Count 200 10^3/UL (140-4 15) Mean Platelet 11.1 Volume fl (7.4-10.4) Immature 0.400 Granulocytes % % (0.001-0.429 ) Neutrophils % 64.6 % (39.0-77.0) Lymphocytes % 18.7 % (15.0-51.0) Monocytes % 9.6 % (0.0-11.0) Eosinophils % 6.1 % (0.0-7.0) Basophils % 0.6 % (0.0-2.0) Nucleated Red 0.0 Blood Cells % /100WBC (0.0-0 .0) Immature 0.040 Granulocytes # 10^3/ul (0.0-0 .031) Neutrophils # 6.8 10^3/ul (1.6-7 .5) Lymphocytes # 2.0 10^3/ul (0.8-2 .9) Monocytes # 1.0 10^3/ul (0.3-0 .9) Eosinophils # 0.6 10^3/ul (0.0-0 .5) Basophils # 0.1 10^3/ul (0.0-0 .1) Nucleated Red 0.0 Blood Cells # 10^3/ul (0.0-0 .0) Sodium Level 133 mmol/L (135-14 4) Potassium 4.4 Level mmol/L (3.5-5. 1) Chloride Level 98 mmol/L (97-110 ) Carbon Dioxide 27 Level mmol/L (21-31) Anion Gap 8 (5-13) Blood Urea 34 Nitrogen mg/dl (7-20) Creatinine 1.33 mg/dl (0.44-1. 00) Est Glomerular mL/min (>60) Filtrat Rate mL/min Glucose Level 163 mg/dl (70-220) Calcium Level 9.2 mg/dl (8.4-10. 2) Test 01/13/19 08:17 Bedside 165 Glucose mg/dL (70-220) BENTLEY LUONG Jan 13, 2019 11:02
[2019-01-13 11:14] VITALS: BP 131/56; PULSE 69; RESP 18
--- NOTE | 2019-01-13 13:59 | CONS ---
Assessment/Plan Assessment/Plan Hospital Course (Demo Recall) Subjective Doing well, no CP recently. Gen: Denies fever, chills CV: Denies chest pain, palpitations, SOB, TORRES, orthopnea, PND, edema, claudication Resp: Denies SOB or cough GI: Denies nausea, vomiting, diarrhea, constipation, abdominal pain Neuro: Denies lightheadedness, dizziness, presyncope/syncope Medications and allergies reviewed Past medical, surgical, family and social history reviewed. Objective General: WD/WN, NAD HEENT: NC/AT, PERRLA, dry mucus membranes CV: RRR, grade 1/6 systolic murmur, S1/S2, no S3/S4, no JVD, no carotid bruits Respiratory: CTAB, no W/C/R, non-labored breathing GI: abdomen soft, NT/ND, normoactive bowel sounds Vascular: extremities are warm, 2+ radial/DT/PT pulses bilaterally, no edema Neuro: A/O x3, no focal deficits Assessment & Plan IMPRESSION: 1. Chest pain, ACS ruled out, neg trop x 3. Lexiscan this admit no ischemia with NL EF. Echo this admit with EF 55-60/LVDD 2. Acute bronchitis 3. Hypertension,fair control 4. Dyslipidemia. 5. Diabetes mellitus. 6. Neuropathy. 7. Increased BNP. 8. ARF-likely secondary to overdiuresis - improving Recc -Tele -Continue current medications -continue treatment for bronchitis Consultation Date/Type/Reason Admit Date/Time Jan 09, 2019 at 15:16 Initial Consult Date Type of Consult Cardiology Requesting Provider: BENTLEY LUONG Date/Time of Note DATE: 01/13/19 TIME: 13:58 Exam/Review of Systems Vital Signs Vitals Vital Signs Date Temp Pulse Resp B/P (MAP) Pulse Ox O2 O2 Flow FiO2 Time Delivery Rate 01/13/19 83 18 97 Nasal 2.0 13:54 Cannula 01/13/19 98.3 131/56 11:14 (81) Intake and Output 01/12/19 01/12/19 01/13/19 1515:00 23:00 07:00 IntakeIntake Total 680 ml 470 ml 240 ml BalanceBalance 680 ml 470 ml 240 ml Labs Result Diagram: 01/13/19 0601/13/19 06 Results 24hrs Laboratory Tests Test 01/12/19 17:34 01/12/19 21:21 01/13/19 06:26 01/13/19 08:17 Bedside Glucose 177 136 165 White Blood Count 10.5 Red Blood Count 4.68 Hemoglobin 13.0 Hematocrit 40.5 Mean Corpuscular Volume 86.5 Mean Corpuscular 27.8 L Hemoglobin Mean Corpuscular 32.1 Hemoglobin Concent Red Cell Distribution 13.8 Width Platelet Count 200 Mean Platelet Volume 11.1 H Immature Granulocytes % 0.400 Neutrophils % 64.6 Lymphocytes % 18.7 Monocytes % 9.6 Eosinophils % 6.1 Basophils % 0.6 Nucleated Red Blood 0.0 Cells % Immature Granulocytes # 0.040 H Neutrophils # 6.8 Lymphocytes # 2.0 Monocytes # 1.0 H Eosinophils # 0.6 H Basophils # 0.1 Nucleated Red Blood 0.0 Cells # Sodium Level 133 L Potassium Level 4.4 Chloride Level 98 Carbon Dioxide Level 27 Anion Gap 8 Blood Urea Nitrogen 34 H Creatinine 1.33 H Est Glomerular Filtrat Rate mL/min Glucose Level 163 Calcium Level 9.2 Test 01/13/19 12:14 01/13/19 12:36 Troponin I < 0.012 Bedside Glucose 192 Medications Medications Current Medications IV Flush (NS 3 ml) 3 ml PER PROTOCOL IV ; Start 01/09/19 at 16:30 Ondansetron HCl (Zofran Inj) 4 mg Q6H PRN IV NAUSEA/VOMITING; Start 01/09/19 at 16:30 Acetaminophen (Tylenol Tab) 650 mg Q6H PRN PO .PAIN 1-3 OR TEMP Last administered on 01/10/19at 00:46; Admin Dose 650 MG; Start 01/09/19 at 16:30 Acetaminophen/ Hydrocodone Bitart (Rochelle (5/325)) 1 tab Q6H PRN PO .MOD PAIN 4- 6 Last administered on 01/10/19at 19:01; Admin Dose 1 TAB; Start 01/09/19 at 16:30 Morphine Sulfate (morphine) 2 mg Q4H PRN IV .SEVERE PAIN 7-10; Start 01/09/19 at 16:30 Docusate Sodium (Colace) 100 mg Q12H PRN PO .CONSTIPATION Last administered on 01/12/19at 10:36; Admin Dose 100 MG; Start 01/09/19 at 16:30 Magnesium Hydroxide (Milk Of Mag) 30 ml DAILY PRN PO .CONSTIPATION Last administered on 01/12/19at 10:36; Admin Dose 30 ML; Start 01/09/19 at 16:30 Lorazepam (Ativan) 0.5 mg Q6H PRN IV ANXIETY Last administered on 01/09/19at 22:34; Admin Dose 0.5 MG; Start 01/09/19 at 16:30 Hydralazine HCl (Apresoline) 10 mg Q6H PRN IV ELEVATED BLOOD PRESSURE; Start 01/09/19 at 16:30 Nitroglycerin (Nitroglycerin (Sl Tab) 0.4 Mg) 1 tab Q5M PRN SL ANGINA; Start 01/09/19 at 16:30 Famotidine (Pepcid) 20 mg DAILY PO Last administered on 01/13/19at 10:42; Admin Dose 20 MG; Start 01/10/19 at 09:00 Ferrous Sulfate (Ferrous Sulfate (Ec)) 325 mg DAILY PO Last administered on 01/13/19at 10:38; Admin Dose 325 MG; Start 01/10/19 at 09:00 Gabapentin (Neurontin) 100 mg QHS PO Last administered on 01/12/19at 21:24; Admin Dose 100 MG; Start 01/09/19 at 21:00 Isosorbide Mononitrate (Imdur) 30 mg DAILY PO Last administered on 01/13/19at 10:38; Admin Dose 30 MG; Start 01/10/19 at 09:00 Diagnostic Test (Pha) (Accu-Chek) 1 ea 02 XX ; Start 01/10/19 at 02:00 Miscellaneous Information 1 ea NOTE XX ; Start 01/09/19 at 17:00 Glucose (Glutose) 15 gm Q15M PRN PO DECREASED GLUCOSE; Start 01/09/19 at 17:00 Glucose (Glutose) 22.5 gm Q15M PRN PO DECREASED GLUCOSE; Start 01/09/19 at 17:00 Dextrose (D50w Syringe) 25 ml Q15M PRN IV DECREASED GLUCOSE; Start 01/09/19 at 17:00 Dextrose (D50w Syringe) 50 ml Q15M PRN IV DECREASED GLUCOSE; Start 01/09/19 at 17:00 Glucagon (Glucagen) 1 mg Q15M PRN IM DECREASED GLUCOSE; Start 01/09/19 at 17:00 Glucose (Glutose) 15 gm Q15M PRN BUCCAL DECREASED GLUCOSE; Start 01/09/19 at 17:00 Hydralazine HCl (Apresoline) 10 mg Q4H PRN IV sbp>170; Start 01/09/19 at 17:30 Atorvastatin Calcium (Lipitor) 10 mg DAILY@21 PO Last administered on 01/12/19 21:24; Admin Dose 10 MG; Start 01/09/19 at 21:00 Cholecalciferol (Vitamin D) 2,000 unit DAILY PO Last administered on 01/13/19 10:38; Admin Dose 2,000 UNIT; Start 01/10/19 at 09:00 Albuterol/ Ipratropium (Duoneb) 3 ml Q4H RESP THERAPY PRN HHN SHORTNESS OF BREATH; Start 01/10/19 at 11:00 Hydralazine HCl (Apresoline) 25 mg BID PO Last administered on 01/13/19 10:38; Admin Dose 25 MG; Start 01/10/19 at 21:00 Albuterol/ Ipratropium (Duoneb) 3 ml Q6H RESP THERAPY HHN Last administered on 01/13/19 13:54; Admin Dose 3 ML; Start 01/11/19 at 14:00 Metoprolol Succinate (Toprol Xl) 12.5 mg DAILY PO Last administered on 01/13/19 10:39; Admin Dose 12.5 MG; Start 01/12/19 at 09:00 Trimethoprim/ Sulfamethoxazole (Bactrim (Ds)) 1 tab DAILY PO Last administered on 01/13/19 10:38; Admin Dose 1 TAB; Start 01/12/19 at 12:30; Stop 01/14/19 at 09:01 Insulin Aspart (Novolog Insulin Pen) (Adult SC Insulin - Mild Algorithm)... AC MEALS AND BEDTIME SC Last administered on 01/13/19 13:32; Admin Dose 2 UNIT; Start 01/12/19 at 17:25 CARLOS PEOPLES DO Jan 13, 2019 13:59
== END 2019-01-13 14:38 | DRG 191 ==
LOC: E/R 09:08 → TEL 15:16
PROVIDERS: ADMIT Hospitalist; ATTEND Hospitalist
DX: J44.0 Chronic obstructive pulmonary disease with (acute) lower respiratory infection (principal); J45.901 Unspecified asthma with (acute) exacerbation; N17.9 Acute kidney failure, unspecified; J20.9 Acute bronchitis, unspecified; J44.1 Chronic obstructive pulmonary disease with (acute) exacerbation; M81.0 Age-related osteoporosis without current pathological fracture; D64.9 Anemia, unspecified; E78.00 Pure hypercholesterolemia, unspecified; I11.0 Hypertensive heart disease with heart failure; I50.9 Heart failure, unspecified; E11.40 Type 2 diabetes mellitus with diabetic neuropathy, unspecified; Z79.4 Long term (current) use of insulin; Z79.82 Long term (current) use of aspirin; Z79.84 Long term (current) use of oral hypoglycemic drugs
CPT/HCPCS: 71045; 71275; 78452; 80048; 80053; 80061; 81001; 82550; 82553; 82962; 83036; 83605; 83735; 83880; 84100; 84439; 84443; 84484; 85025; 85610; 85730; 87086; 92610; 93005; 93017; 93306; 94640; 94664; 97116; 97161; 97165; 97530; 97535; A9500; A9505; J1815; J1940; J1956; J2060; J2785; J7040